=== PATIENT | male | born 1970 | race African-American/Black ===

== ENCOUNTER → 2017-02-24 | Outpatient (CLI) | payer OTHER ==
[2017-02-24 09:33] LABS: ABSOLUTE EOSINOPHILS # (AUTO) 0.1 10^3/uL (0.0-0.6); ABSOLUTE MONOCYTES (AUTO) 0.8 10^3/uL (0.1-1.4); ABSOLUTE NEUT (AUTO) 2.7 10^3/uL (1.7-8.2); BASOPHILS % (AUTO) 0.7 % (0-2); EOSINOPHILS % (AUTO) 2.5 % (0-6); HEMATOCRIT 39.8 % (37.9-51.0); HEMOGLOBIN 13.5 g/dL (13.5-17.0); HGB HCT DIFFERENCE 0.7; LYMPHOCYTES % (AUTO) 35.9 % (13-45); MEAN CORPUSCULAR HEMOGLOBIN 29.3 pg (27.0-33.4); MEAN CORPUSCULAR HGB CONC 33.9 g/dL (32.0-36.0); MEAN CORPUSCULAR VOLUME 87 fl (80-97); MONOCYTES % (AUTO) 13.4 % (3-13); RED BLOOD COUNT 4.61 10^6/uL (4.35-5.55); RED CELL DISTRIBUTION WIDTH 13.7 % (11.5-14.0); SEGMENTED NEUTROPHILS % (AUTO) 47.5 % (42-78); WHITE BLOOD COUNT 5.7 10^3/uL (4.0-10.5)
[2017-02-24 10:03] LABS: ALANINE AMINOTRANSFERASE 38 U/L (21-72); ALBUMIN 4.2 g/dL (3.5-5.0); ALKALINE PHOSPHATASE 67 U/L (38-126); ANION GAP 12 (5-19); ASPARTATE AMINO TRANSFERASE 19 U/L (17-59); BILIRUBIN,DIRECT 0.2 mg/dL (0.0-0.4); BILIRUBIN,TOTAL 0.6 mg/dL (0.2-1.3); BLOOD UREA NITROGEN 15 mg/dL (7-20); CALCIUM 9.7 mg/dL (8.4-10.2); CARBON DIOXIDE 27 mmol/L (22-30); CHLORIDE 103 mmol/L (98-107); CHOLESTEROL 183.76 mg/dL (0-200); CREATININE RESULT 0.71 mg/dL (0.52-1.25); Direct HDL 41 mg/dL (>40); GLUCOSE 159 mg/dL (75-110); POTASSIUM 4.7 mmol/L (3.6-5.0); SODIUM 141.5 mmol/L (137-145); TOTAL PROTEIN 6.8 g/dL (6.3-8.2); TRIGLYCERIDES 60 mg/dL (<150)
[2017-02-24 10:14] LABS: DIRECT LDL 117 mg/dL (<100)
== END ==
LOC: CCC 08:39
DX: I10 Essential (primary) hypertension (principal); E11.9 Type 2 diabetes mellitus without complications
CPT/HCPCS: 36415; 80053; 80061; 83036; 84443; 85025

== ENCOUNTER 2018-06-03 05:57 | Emergency (ER) | payer SELFPAY ==
[2018-06-03] MEDS ORDERED: CYCLOBENZAPRINE HCL 10 MG TABLET PO ONE (07:26)
[2018-06-03] MEDS ORDERED: OXYCODONE-ACETAMINOPHEN 5-325 MG TABLET PO ONE (07:26)
[2018-06-03] MEDS ORDERED: LIDOCAINE 5% (700 MG) TRANSDERMAL ADH..PATCH TP ONE (07:26)
[2018-06-03 08:14] LABS: APPEARANCE,URINE CLEAR; BILIRUBIN,URINE NEGATIVE (NEGATIVE); COLOR,URINE STRAW; GLUCOSE, URINE >=500 mg/dL (NEGATIVE); KETONES,URINE NEGATIVE (NEGATIVE); LEUKOCYTE ESTERASE,URINE NEGATIVE (NEGATIVE); NITRITE,URINE NEGATIVE (NEGATIVE); PROTEIN,URINE NEGATIVE (NEGATIVE); UROBILINOGEN,URINE NEGATIVE mg/dL (<2.0)
--- NOTE | 2018-06-03 08:32 | ER Document Report ---
HPI - HPI Patient complains to provider of: Low back pain Onset: Other - 2 days Onset/Duration: Persistent Quality of pain: Achy Pain Level: 5 Context: Patient presents complaining of low back pain for the past 2 days. Patient states that pain worsened yesterday after he mowed his yard. Patient denies any urinary symptoms fever, abdominal pain. Patient denies any radiculopathy or paresthesia. Patient denies any history of IV drug use. Patient does state he has had low back pain in this location in the past. Patient states this does feel similar to previous episodes of his back pain. Associated Symptoms: Other - Low back pain. denies: Fever Exacerbated by: Movement Relieved by: Denies Similar symptoms previously: No Recently seen / treated by doctor: No - ROS ROS below otherwise negative: Yes Systems Reviewed and Negative: Yes All other systems reviewed and negative - CONSTITUTIONAL Constitutional: DENIES: Fever, Chills - NEURO Neurology: DENIES: Weakness - GASTROINTESTINAL Gastrointestinal: DENIES: Abdominal Pain, Nausea - MUSCULOSKELETAL Musculoskeletal: REPORTS: Back Pain. DENIES: Extremity pain - DERM Skin Color: Normal Skin Problems: None Past Medical History - General Information source: Patient - Social History Smoking Status: Current Every Day Smoker Chew tobacco use (# tins/day): No Smoking Education Provided: Yes Frequency of alcohol use: None Drug Abuse: None Occupation: [employer] Lives with: Spouse/Significant other Family History: Reviewed & Not Pertinent Patient has suicidal ideation: No Patient has homicidal ideation: No - Past Medical History Cardiac Medical History: Reports: Hx Hypertension Pulmonary Medical History: Denies: Hx Tuberculosis Endocrine Medical History: Reports: Hx Diabetes Mellitus Type 2 Renal/ Medical History: Denies: Hx Peritoneal Dialysis Musculoskeletal Medical History: Reports Other - Low back pain Past Surgical History: Reports: Hx Orthopedic Surgery - Hip. Denies: Hx Pacemaker - Immunizations Hx Diphtheria, Pertussis, Tetanus Vaccination: Yes - 2009 Vertical Provider Document - CONSTITUTIONAL Agree With Documented VS: Yes Exam Limitations: No Limitations General Appearance: WD/WN, No Apparent Distress Notes: PHYSICAL EXAMINATION: GENERAL: Well-appearing, well-nourished and in no acute distress. HEAD: Atraumatic, normocephalic. EYES: sclera clear, anicteric, conjunctiva are normal. ENT: nares patent, Moist mucous membranes. NECK: Normal range of motion, supple no lymphadenopathy LUNGS: respirations unlabored HEART: Regular rate and rhythm without murmurs EXTREMITIES: Normal range of motion, no pitting or edema. No cyanosis. Gait normal, pt ambulates without difficulty BACK: Right lower lumbar paraspinal tenderness, no midline tenderness, no deformities or step-offs. Right CVA tenderness. NEUROLOGICAL: Cranial nerves grossly intact. Normal speech, normal gait. No saddle anesthesia. No foot drop PSYCH: Normal mood, normal affect. SKIN: Warm, Dry, normal turgor, no rashes or lesions noted. - INFECTION CONTROL TRAVEL OUTSIDE OF THE [place] IN LAST 30 DAYS: No Course - Re-evaluation Re-evalutation: 06/03/18 08:29 Patient feeling better after pain medication. Patient denies any urinary symptoms abdominal pain, concern about STD, or any history of kidney stones. Patient states the pain is similar to whenever he has tweaked his back in the past. Good return precautions given. The patient presents with low back pain without signs of spinal cord compression, cauda equina syndrome, infection, aneurysm, or other serious etiology. The patient is neurologically intact. Given the extremely risk of these diagnoses further testing and evaluation for these possibilities does not appear to be indicated at this time. Patient has been instructed to return if the symptoms worsen or change in any way. - Vital Signs Vital signs: Temp Pulse Resp BP Pulse Ox 97.8 F 100 19 147/105 H 97 06/03/18 05:58 06/03/18 05:58 06/03/18 05:58 06/03/18 05:58 06/03/18 05:58 - Laboratory Laboratory results interpreted by me: 06/03/18 07:48 Urine Glucose (UA) >=500 H Urine Blood SMALL H 06/03/18 08:30 Labs- Entire Visit 06/03/18 07:48 Urine Color STRAW Urine Appearance CLEAR Urine pH 5.0 Ur Specific [place] 1.030 Urine Protein NEGATIVE Urine Glucose (UA) >=500 H Urine Ketones NEGATIVE Urine Blood SMALL H Urine Nitrite NEGATIVE Urine Bilirubin NEGATIVE Urine Urobilinogen NEGATIVE Ur Leukocyte Esterase NEGATIVE Urine WBC (Auto) 1 Urine RBC (Auto) 1 Urine Mucus (Auto) RARE Urine Ascorbic Acid NEGATIVE Discharge - Discharge Clinical Impression: Low back pain Qualifiers: Chronicity: unspecified Back pain laterality: right Sciatica presence: without sciatica Qualified Code(s): M54.5 - Low back pain Condition: Stable Disposition: HOME, SELF-CARE Instructions: Ice Packs ([facility]), Low Back Pain ([facility]), Oral Narcotic Medication ( [facility]), Warm Packs ([facility]) Additional Instructions: Return immediately for any new or worsening symptoms Followup with your primary care provider, call tomorrow to make a followup appointment Prescriptions: Cyclobenzaprine HCl [Flexeril 10 Mg Tablet] 10 mg PO TID #15 tablet Oxycodone HCl/Acetaminophen [Percocet 5-325 mg Tablet] 1 tab PO ASDIR PRN #15 tablet PRN Reason: Forms: Smoking Cessation Education, Return to Work Referrals: [facility] [Provider Group] - Follow up as needed
[2018-06-03 08:58] VITALS: BP 126/90
== END 2018-06-03 08:57 | disposition home or self-care (01) ==
LOC: ER 05:57
DX: M54.5 Low back pain (principal); X50.9XXA Other and unspecified overexertion or strenuous movements or postures, initial encounter; F17.200 Nicotine dependence, unspecified, uncomplicated; I10 Essential (primary) hypertension; E11.9 Type 2 diabetes mellitus without complications
CPT/HCPCS: 81001; 99283

== ENCOUNTER 2019-01-30 12:25 | Observation (INO) | payer SELFPAY ==
--- NOTE | 2019-01-30 13:07 | EKG REPORT ---
SEVERITY:- ABNORMAL ECG - SINUS RHYTHM PROBABLE LVH WITH SECONDARY REPOL ABNRM : Confirmed by: Josse Barrera MD 30-Jan-2019 13:07:07
[2019-01-30] MEDS ORDERED: ASPIRIN 81 MG TABLET, CHEWABLE PO ONE (13:56)
--- NOTE | 2019-01-30 13:58 | ER Document Report ---
ED Medical Screen (RME) - General Chief Complaint: Chest Pain Stated Complaint: CHEST PAIN TRAVEL OUTSIDE OF THE [place] IN LAST 30 DAYS: No - HPI Notes: 01/30/19 13:57 Patient complaining of chest pain and generalized body weakness. On exam patient is pale. He denies abdominal pain, nausea or vomiting. - Related Data Allergies/Adverse Reactions: No Known Allergies Allergy (Verified 01/30/19 12:26) Past Medical History - Social History Chew tobacco use (# tins/day): No Frequency of alcohol use: Occasional Drug Abuse: None - Past Medical History Cardiac Medical History: Reports: Hx Hypertension Pulmonary Medical History: Denies: Hx Tuberculosis Endocrine Medical History: Reports: Hx Diabetes Mellitus Type 2 Renal/ Medical History: Denies: Hx Peritoneal Dialysis Past Surgical History: Reports: Hx Orthopedic Surgery - Hip. Denies: Hx Pacemaker - Immunizations Hx Diphtheria, Pertussis, Tetanus Vaccination: Yes - 2009 Physical Exam - Vital signs Vitals: Temp Pulse Resp BP Pulse Ox 97.8 F 91 16 125/96 H 96 01/30/19 12:37 01/30/19 12:37 01/30/19 12:37 01/30/19 12:37 01/30/19 12:37 Course - Vital Signs Vital signs: Temp Pulse Resp BP Pulse Ox 97.8 F 91 16 125/96 H 96 01/30/19 12:37 01/30/19 12:37 01/30/19 12:37 01/30/19 12:37 01/30/19 12:37
[2019-01-30 14:35] LABS: PROTHROMBIN TIME 12.6 SEC (11.4-15.4)
[2019-01-30 14:38] LABS: ABSOLUTE EOSINOPHILS # (AUTO) 0.1 10^3/uL (0.0-0.6); EOSINOPHILS % (AUTO) 1.7 % (0-6); HEMOGLOBIN 15.6 g/dL (13.5-17.0); RED CELL DISTRIBUTION WIDTH 13.4 % (11.5-14.0); TOTAL CELLS COUNTED % (AUTO) 100 %
[2019-01-30 14:39] LABS: APPEARANCE,URINE CLEAR; BILIRUBIN,URINE NEGATIVE (NEGATIVE); COLOR,URINE YELLOW; GLUCOSE, URINE >=500 mg/dL (NEGATIVE); KETONES,URINE NEGATIVE (NEGATIVE); LEUKOCYTE ESTERASE,URINE NEGATIVE (NEGATIVE); NITRITE,URINE NEGATIVE (NEGATIVE); PROTEIN,URINE NEGATIVE (NEGATIVE); URINE SPECIFIC GRAVITY 1.031; UROBILINOGEN,URINE NEGATIVE mg/dL (<2.0)
[2019-01-30 14:48] LABS: ABSOLUTE BASOPHILS # (AUTO) 0.1 10^3/uL (0.0-0.2); ABSOLUTE LYMPHOCYTES (AUTO) 1.9 10^3/uL (0.5-4.7); ABSOLUTE MONOCYTES (AUTO) 0.8 10^3/uL (0.1-1.4); ABSOLUTE NEUT (AUTO) 3.4 10^3/uL (1.7-8.2); BASOPHILS % (AUTO) 1.1 % (0-2); HEMATOCRIT 45.4 % (37.9-51.0); LYMPHOCYTES % (AUTO) 30.3 % (13-45); MEAN CORPUSCULAR HEMOGLOBIN 31.4 pg (27.0-33.4); MEAN CORPUSCULAR HGB CONC 34.4 g/dL (32.0-36.0); MEAN CORPUSCULAR VOLUME 91 fl (80-97); MONOCYTES % (AUTO) 12.9 % (3-13); RED BLOOD COUNT 4.97 10^6/uL (4.35-5.55); WHITE BLOOD COUNT 6.4 10^3/uL (4.0-10.5)
[2019-01-30 14:53] LABS: ALANINE AMINOTRANSFERASE 31 U/L (21-72); ALBUMIN 5.1 g/dL (3.5-5.0); ALKALINE PHOSPHATASE 82 U/L (38-126); ANION GAP 11 (5-19); ASPARTATE AMINO TRANSFERASE 22 U/L (17-59); BILIRUBIN,DIRECT 0.3 mg/dL (0.0-0.4); BILIRUBIN,TOTAL 0.7 mg/dL (0.2-1.3); BLOOD UREA NITROGEN 19 mg/dL (7-20); CALCIUM 11.3 mg/dL (8.4-10.2); CARBON DIOXIDE 27 mmol/L (22-30); CHLORIDE 97 mmol/L (98-107); CREATINE KINASE 45 U/L (55-170); GLUCOSE 301 mg/dL (75-110); POTASSIUM 4.8 mmol/L (3.6-5.0); SODIUM 135.3 mmol/L (137-145)
[2019-01-30 15:05] LABS: PLATELET COUNT 106 10^3/uL (150-450)
--- NOTE | 2019-01-30 15:13 | RADIOLOGY REPORT (SQ) ---
EXAM DESCRIPTION: CHEST SINGLE VIEW COMPLETED DATE/TIME: 01/30/2019 2:55 pm REASON FOR STUDY: chest pain COMPARISON: None. EXAM PARAMETERS: NUMBER OF VIEWS: One view. TECHNIQUE: Single frontal radiographic view of the chest acquired. RADIATION DOSE: NA LIMITATIONS: None. FINDINGS: LUNGS AND PLEURA: No opacities, masses or pneumothorax. No pleural effusion. MEDIASTINUM AND HILAR STRUCTURES: No masses. Contour normal. HEART AND VASCULAR STRUCTURES: Heart normal in size. Normal vasculature. BONES: No acute findings. HARDWARE: None in the chest. OTHER: No other significant finding. IMPRESSION: NO ACUTE RADIOGRAPHIC FINDING IN THE CHEST. TECHNICAL DOCUMENTATION: JOB ID: [id number] [employer]- All Rights Reserved Reading location - IP/workstation name: [email or web address]
[2019-01-30 15:17] LABS: TROPONIN I < 0.012 ng/mL
--- NOTE | 2019-01-30 18:07 | ER Document Report ---
ED Cardiac - General Chief Complaint: Chest Pain Stated Complaint: CHEST PAIN Time Seen by Provider: 01/30/19 17:10 Notes: 48-year-old male to the emergency department chief complaint of chest pain. Patient states that he has had intermittent chest pain on the left sometimes radiating down left arm. Comes and goes. Has been present on and off for several days. Feels like he has shortness of breath. When he tries to exert himself he feels like his heart is racing he feels very short of breath. Today it was getting worse. When sitting still his heart rate is fine whenever he tries to move his heart rate goes up and he feels short of breath. TRAVEL OUTSIDE OF THE [place] IN LAST 30 DAYS: No - HPI Patient complains to provider of: Chest pain, Chest tightness, Palpitations, Shortness of breath Was the onset of pain: Gradual Is the pain a: New problem Quality of pain: Intermittent, Mild - Related Data Allergies/Adverse Reactions: No Known Allergies Allergy (Verified 01/30/19 12:26) Past Medical History - General Information source: Patient - Social History Smoking Status: Current Every Day Smoker Chew tobacco use (# tins/day): No Frequency of alcohol use: Occasional Drug Abuse: None Lives with: Family Family History: CAD, DM, Hyperlipidemia, Hypertension Patient has suicidal ideation: No Patient has homicidal ideation: No - Past Medical History Cardiac Medical History: Reports: Hx Hypertension Pulmonary Medical History: Denies: Hx Tuberculosis Endocrine Medical History: Reports: Hx Diabetes Mellitus Type 2 Renal/ Medical History: Denies: Hx Peritoneal Dialysis Past Surgical History: Reports: Hx Orthopedic Surgery - Hip. Denies: Hx Pacemaker - Immunizations Hx Diphtheria, Pertussis, Tetanus Vaccination: Yes - 2009 Review of Systems - Review of Systems Notes: Constitutional: denies: Chills, Diaphoresis, Fever, Malaise, Weakness EENT: denies: Eye discharge, Blurred vision, Tearing, Double vision, Nose congestion, Nose discharge, Throat swelling, Mouth pain Cardiovascular: denies: Palpitations, Heart racing, Orthopnea, +Dyspnea, +Chest pain Respiratory: denies: Cough, Hurts to breathe, Wheezing, +Shortness of breath Gastrointestinal: denies: Abdominal pain, Diarrhea, Nausea, Vomiting, Black stools, bright red blood in stool Genitourinary: denies: Burning, Dysuria, Discharge, Frequency, Flank pain, Hematuria Musculoskeletal: denies: Joint pain, Joint swelling, Muscle pain, Muscle stif fness, back pain Hematologic/Lymphatic: denies: Anemia, Easy bleeding, Easy bruising, Blood clots Neurological/Psychological: denies: Confusion, Dementia, Depression, Loss of consciousness Skin: No lesions, no masses, no skin breakdown, no abscesses Physical Exam - Vital signs Vitals: Temp Pulse Resp BP Pulse Ox 97.8 F 91 16 125/96 H 96 01/30/19 12:37 01/30/19 12:37 01/30/19 12:37 01/30/19 12:37 01/30/19 12:37 Interpretation: Normal - General General appearance: Appears well, Alert - HEENT Head: Normocephalic, Atraumatic Eyes: Normal Pupils: PERRL - Respiratory Respiratory status: No respiratory distress Chest status: Nontender Breath sounds: Normal Chest palpation: Normal - Cardiovascular Rhythm: Regular Heart sounds: Normal auscultation Murmur: No - Abdominal Inspection: Normal Distension: No distension Bowel sounds: Normal Tenderness: Nontender Organomegaly: No organomegaly - Back Back: Normal, Nontender - Extremities General upper extremity: Normal inspection, Nontender, Normal color, Normal ROM, Normal temperature General lower extremity: Normal inspection, Nontender, Normal color, Normal ROM, Normal temperature, Normal weight bearing. No: Ansley's sign - Neurological Neuro grossly intact: Yes Cognition: Normal Orientation: AAOx4 Wiley Coma Scale Eye Opening: Spontaneous Wiley Coma Scale Verbal: Oriented Sergey Coma Scale Motor: Obeys Commands Wiley Coma Scale Total: 15 Speech: Normal Motor strength normal: LUE, RUE, LLE, RLE Sensory: Normal - Psychological Associated symptoms: Normal affect, Normal mood - Skin Skin Temperature: Warm Skin Moisture: Dry Skin Color: Normal Course - Re-evaluation Re-evalutation: 01/30/19 20:33 Laboratory 01/30/19 01/30/19 01/30/19 14:13 14:13 14:13 WBC 6.4 RBC 4.97 Hgb 15.6 Hct 45.4 MCV 91 MCH 31.4 MCHC 34.4 RDW 13.4 Plt Count 106 L Seg Neutrophils % 54.0 Lymphocytes % 30.3 Monocytes % 12.9 Eosinophils % 1.7 Basophils % 1.1 Absolute Neutrophils 3.4 Absolute Lymphocytes 1.9 Absolute Monocytes 0.8 Absolute Eosinophils 0.1 Absolute Basophils 0.1 PT 12.6 INR 0.90 APTT 36.0 H D-Dimer Sodium 135.3 L Potassium 4.8 Chloride 97 L Carbon Dioxide 27 Anion Gap 11 BUN 19 Creatinine 0.83 Est GFR ( Amer) > 60 Est GFR (Non-Af Amer) > 60 Glucose 301 H Calcium 11.3 H Total Bilirubin 0.7 Direct Bilirubin 0.3 Neonat Total Bilirubin Not Reportable Neonat Direct Bilirubin Not Reportable Neonat Indirect Bili Not Reportable AST 22 ALT 31 Alkaline Phosphatase 82 Creatine Kinase 45 L CK-MB (CK-2) Troponin I Total Protein 8.0 Albumin 5.1 H Urine Color Urine Appearance Urine pH Ur Specific [place] Urine Protein Urine Glucose (UA) Urine Ketones Urine Blood Urine Nitrite Urine Bilirubin Urine Urobilinogen Ur Leukocyte Esterase Urine WBC (Auto) Urine Mucus (Auto) Urine Ascorbic Acid 01/30/19 01/30/19 01/30/19 14:13 14:13 14:13 WBC RBC Hgb Hct MCV MCH MCHC RDW Plt Count Seg Neutrophils % Lymphocytes % Monocytes % Eosinophils % Basophils % Absolute Neutrophils Absolute Lymphocytes Absolute Monocytes Absolute Eosinophils Absolute Basophils PT INR APTT D-Dimer 0.81 H Sodium Potassium Chloride Carbon Dioxide Anion Gap BUN Creatinine Est GFR ( Amer) Est GFR (Non-Af Amer) Glucose Calcium Total Bilirubin Direct Bilirubin Neonat Total Bilirubin Neonat Direct Bilirubin Neonat Indirect Bili AST ALT Alkaline Phosphatase Creatine Kinase CK-MB (CK-2) 0.30 Troponin I < 0.012 Total Protein Albumin Urine Color YELLOW Urine Appearance CLEAR Urine pH 5.0 Ur Specific [place] 1.031 Urine Protein NEGATIVE Urine Glucose (UA) >=500 H Urine Ketones NEGATIVE Urine Blood SMALL H Urine Nitrite NEGATIVE Urine Bilirubin NEGATIVE Urine Urobilinogen NEGATIVE Ur Leukocyte Esterase NEGATIVE Urine WBC (Auto) 1 Urine Mucus (Auto) RARE Urine Ascorbic Acid NEGATIVE 01/30/19 19:40 WBC RBC Hgb Hct MCV MCH MCHC RDW Plt Count Seg Neutrophils % Lymphocytes % Monocytes % Eosinophils % Basophils % Absolute Neutrophils Absolute Lymphocytes Absolute Monocytes Absolute Eosinophils Absolute Basophils PT INR APTT D-Dimer Sodium Potassium Chloride Carbon Dioxide Anion Gap BUN Creatinine Est GFR ( Amer) Est GFR (Non-Af Amer) Glucose Calcium Total Bilirubin Direct Bilirubin Neonat Total Bilirubin Neonat Direct Bilirubin Neonat Indirect Bili AST ALT Alkaline Phosphatase Creatine Kinase CK-MB (CK-2) Troponin I 0.016 Total Protein Albumin Urine Color Urine Appearance Urine pH Ur Specific [place] Urine Protein Urine Glucose (UA) Urine Ketones Urine Blood Urine Nitrite Urine Bilirubin Urine Urobilinogen Ur Leukocyte Esterase Urine WBC (Auto) Urine Mucus (Auto) Urine Ascorbic Acid 01/30/19 22:20 Chest X-Ray 01/30/19 13:56 IMPRESSION: NO ACUTE RADIOGRAPHIC FINDING IN THE CHEST. Chest/Abdomen CTA 01/30/19 19:36 IMPRESSION: No acute pulmonary embolism. No acute pathology. Patient had a CTA as well as chest x-ray and cardiac labs x2. All this is unremarkable. CTA was performed based on his symptoms of shortness of breath and heart racing with a family history of pulmonary embolisms. At this time patient has significant risk factors including family history, hypertension, male, and diabetes. Patient has never had a stress test. At this time patient has stable for admission and workup. Will page hospitalist for admission at this time. Patient's heart score is 4 - Vital Signs Vital signs: Temp Pulse Resp BP Pulse Ox 97.8 F 91 12 146/101 H 100 01/30/19 12:37 01/30/19 12:37 01/30/19 21:08 01/30/19 20:01 01/30/19 21:08 - Laboratory Result Diagrams: 01/30/19 14:13 01/30/19 14:13 Laboratory results interpreted by me: 01/30/19 01/30/19 01/30/19 14:13 14:13 14:13 Plt Count 106 L APTT 36.0 H D-Dimer Sodium 135.3 L Chloride 97 L Glucose 301 H Calcium 11.3 H Creatine Kinase 45 L Albumin 5.1 H Urine Glucose (UA) Urine Blood 01/30/19 01/30/19 14:13 14:13 Plt Count APTT D-Dimer 0.81 H Sodium Chloride Glucose Calcium Creatine Kinase Albumin Urine Glucose (UA) >=500 H Urine Blood SMALL H - EKG Interpretation by Me EKG shows normal: Sinus rhythm, Mcleod, Intervals, QRS Complexes, ST-T Waves Voltage: Consistant with LVH Discharge - Discharge Clinical Impression: Chest pain at rest Condition: Good Disposition: ADMITTED OBSERVATION Admitting Provider: Hospitalist - [facility] Admitted: Telemetry
--- NOTE | 2019-01-30 21:31 | RADIOLOGY REPORT (SQ) ---
EXAM DESCRIPTION: CT CHEST ANGIOGRAPHY WITHOUT THEN WITH IV CONTRAST, three-dimensional reconstructions COMPLETED DATE/TME: 01/30/2019 19:36 CLINICAL HISTORY: 48 years, Male, chest pain , sob This exam was performed according to our departmental dose-optimization program which includes automated exposure control, adjustment of the mA and/or kVp according to patient size and/or use of iterative reconstruction technique where applicable. FINDINGS: Thyroid is within normal limits. Pulmonary arteries are well opacified with no significant filling defects in the pulmonary arterial tree to suggest acute pulmonary embolism. Aorta is within normal limits with no aneurysm or dissection. No significant mediastinal, hilar or axillary lymphadenopathy. No pleural or pericardial effusions. The visualized upper abdominal organs are within normal limits. Evaluation of the lung parenchyma demonstrates trachea and major airways to be patent. No suspicious lung nodules or masses. No consolidations to suggest pneumonia. IMPRESSION: No acute pulmonary embolism. No acute pathology.
[2019-01-30] MEDS ORDERED: ACETAMINOPHEN 325 MG TABLET PO PRN (22:29)
[2019-01-30] MEDS ORDERED: DEXTROSE 50%-WATER 25 GM/50 ML DISP.SYRIN IV PRN ×2 (22:29)
[2019-01-30] MEDS ORDERED: GLUCAGON,HUMAN RECOMB 1 MG INJ IM PRN (22:29)
[2019-01-30] MEDS ORDERED: NITROGLYCERIN 0.4 MG/TAB 25 TAB/BOTTLE SL PRN (22:29)
[2019-01-30] MEDS ORDERED: DEXTROSE 40% GEL 15 GM TUBE PO PRN ×2 (22:29)
[2019-01-30] MEDS ORDERED: MAG HYDROX/AL HYDROX/SIMETH SUSP 30 ML UDCUP PO ONE (23:30)
[2019-01-30] MEDS ORDERED: ATORVASTATIN CALCIUM 80 MG TABLET PO ONE (23:30)
[2019-01-30] MEDS ORDERED: LACTULOSE SYRUP 20 GM/30 ML UDCUP PO ONE (23:30)
[2019-01-31] MEDS ORDERED: NICOTINE 7 MG/24 HR PATCH.TD24 TD ONE (02:00)
--- NOTE | 2019-01-31 02:44 | PDOC H&P ---
History of Present Illness Admission Date/PCP: 01/30/19 23:48 Patient complains of: Left-sided chest pain History of Present Illness: TOBY CIFUENTES JR is a 48 year old male with a past medical history of diabetes, hypertension, dyslipidemia and tobacco dependence. Patient presents with 48 hours of intermittent chest pain which is left-sided 3 out of 5 intensity l asting 5-15 minutes. Dull in nature associated with palpitations and shortness of breath. He denies nausea vomiting or previous episode he is unable to identify alleviating or exacerbating factors. He denies previous stress test. He admits medication lifestyle indiscretion. He is currently pain-free and referred to the hospitalist for admission. His last A1c was 8 approximately 12 months ago Past Medical History Cardiac Medical History: Reports: Hypertension Pulmonary Medical History: Denies: Tuberculosis Endocrine Medical History: Reports: Diabetes Mellitus Type 2 Psychiatric Medical History: Reports: Tobacco Dependency Past Surgical History Past Surgical History: Reports: Orthopedic Surgery - Hip Denies: Pacemaker Social History Information Source: Patient Lives with: Family Smoking Status: Current Every Day Smoker Frequency of Alcohol Use: None Hx Recreational Drug Use: No Drugs: None Hx Prescription Drug Abuse: No - Advance Directive Resuscitation Status: Full Code Family History Family History: CAD, DM, Hyperlipidemia, Hypertension Parental Family History Reviewed: Yes Children Family History Reviewed: Yes Sibling(s) Family History Reviewed.: Yes Medication/Allergy Home Medications: Lisinopril/Hydrochlorothiazide [Lisinopril-Hctz 20-12.5 mg Tab] 1 each PO DAILY 01/15/15 Metformin HCl [Glucophage] 500 mg PO DAILY 01/15/15 Lisinopril/Hydrochlorothiazide [Lisinopril-Hctz 20-12.5 mg Tab] 1 each PO DAILY #30 tablet 09/12/15 Metformin HCl [Glucophage] 500 mg PO DAILY #30 tablet 09/12/15 Metformin HCl [Glucophage 500 mg Tablet] 500 mg PO TID #90 tablet 09/18/15 Glipizide [Glipizide ER] 5 mg PO DAILY #30 tab.er.24 11/03/16 Lisinopril/Hydrochlorothiazide [Lisinopril-Hctz 20-12.5 mg Tab] 1 each PO DAILY #30 tablet 11/03/16 Metformin HCl 1,000 mg PO DAILY #60 tablet 12/15/16 Cyclobenzaprine HCl [Flexeril 10 Mg Tablet] 10 mg PO TID #15 tablet 06/03/18 Oxycodone HCl/Acetaminophen [Percocet 5-325 mg Tablet] 1 tab PO ASDIR PRN #15 tablet 06/03/18 Allergies/Adverse Reactions: No Known Allergies Allergy (Verified 01/30/19 12:26) Review of Systems Constitutional: ABSENT: chills, fever(s), headache(s), weight gain, weight loss Eyes: ABSENT: visual disturbances Ears: ABSENT: hearing changes Cardiovascular: ABSENT: chest pain, dyspnea on exertion, edema, orthropnea, palpitations Respiratory: ABSENT: cough, hemoptysis Gastrointestinal: ABSENT: abdominal pain, constipation, diarrhea, hematemesis, hematochezia, nausea, vomiting Genitourinary: ABSENT: dysuria, hematuria Musculoskeletal: ABSENT: joint swelling Integumentary: ABSENT: rash, wounds Neurological: ABSENT: abnormal gait, abnormal speech, confusion, dizziness, focal weakness, syncope Psychiatric: ABSENT: anxiety, depression, homidical ideation, suicidal ideation Endocrine: ABSENT: cold intolerance, heat intolerance, polydipsia, polyuria Hematologic/Lymphatic: ABSENT: easy bleeding, easy bruising Physical Exam Vital Signs: Temp Pulse Resp BP Pulse Ox 97.7 F 73 17 139/95 H 98 01/31/19 01:43 01/31/19 01:43 01/31/19 01:43 01/31/19 01:43 01/31/19 01:43 Intake & Output 01/29/19 01/30/19 01/31/19 11:59 11:59 11:59 Weight 82.3 kg General appearance: PRESENT: no acute distress, well-developed, well-nourished Head exam: PRESENT: atraumatic, normocephalic Eye exam: PRESENT: conjunctiva pink, EOMI, PERRLA. ABSENT: scleral icterus Ear exam: PRESENT: normal external ear exam Mouth exam: PRESENT: moist, tongue midline Neck exam: ABSENT: carotid bruit, JVD, lymphadenopathy, thyromegaly Respiratory exam: PRESENT: clear to auscultation antonella. ABSENT: rales, rhonchi, wheezes Cardiovascular exam: PRESENT: RRR. ABSENT: diastolic murmur, rubs, systolic murmur Pulses: PRESENT: normal dorsalis pedis pul Vascular exam: PRESENT: normal capillary refill GI/Abdominal exam: PRESENT: normal bowel sounds, soft. ABSENT: distended, guarding, mass, organolmegaly, rebound, tenderness Rectal exam: PRESENT: deferred Extremities exam: PRESENT: full ROM. ABSENT: calf tenderness, clubbing, pedal edema Neurological exam: PRESENT: alert, awake, oriented to person, oriented to place, oriented to time, oriented to situation, CN II-XII grossly intact. ABSENT: motor sensory deficit Psychiatric exam: PRESENT: appropriate affect, normal mood. ABSENT: homicidal ideation, suicidal ideation Skin exam: PRESENT: dry, intact, warm. ABSENT: cyanosis, rash Results Laboratory Results: 01/30/19 14:13 01/30/19 14:13 01/30/19 01/30/19 01/30/19 14:13 14: 14:13 WBC 6.4 RBC 4.97 Hgb 15.6 Hct 45.4 MCV 91 MCH 31.4 MCHC 34.4 RDW 13.4 Plt Count 106 L Seg Neutrophils % 54.0 Lymphocytes % 30.3 Monocytes % 12.9 Eosinophils % 1.7 Basophils % 1.1 Absolute Neutrophils 3.4 Absolute Lymphocytes 1.9 Absolute Monocytes 0.8 Absolute Eosinophils 0.1 Absolute Basophils 0.1 Sodium 135.3 L Potassium 4.8 Chloride 97 L Carbon Dioxide 27 Anion Gap 11 BUN 19 Creatinine 0.83 Est GFR ( Amer) > 60 Est GFR (Non-Af Amer) > 60 Glucose 301 H Calcium 11.3 H Total Bilirubin 0.7 AST 22 ALT 31 Alkaline Phosphatase 82 Total Protein 8.0 Albumin 5.1 H Urine Color YELLOW Urine Appearance CLEAR Urine pH 5.0 Ur Specific [place] 1.031 Urine Protein NEGATIVE Urine Glucose (UA) >=500 H Urine Ketones NEGATIVE Urine Blood SMALL H Urine Nitrite NEGATIVE Ur Leukocyte Esterase NEGATIVE Urine WBC (Auto) 1 01/30/19 01/30/19 01/30/19 14:13 14:13 19:40 Creatine Kinase 45 L CK-MB (CK-2) 0.30 Troponin I < 0.012 0.016 01/30/19 01/30/19 01/31/19 19:40 19:40 01:12 Creatine Kinase 38 L CK-MB (CK-2) 0.25 Troponin I 0.017 Impressions: Chest X-Ray 01/30/19 13:56 IMPRESSION: NO ACUTE RADIOGRAPHIC FINDING IN THE CHEST. Chest/Abdomen CTA 01/30/19 19:36 IMPRESSION: No acute pulmonary embolism. No acute pathology. Assessment & Plan - Diagnosis (1) Atypical chest pain Is this a current diagnosis for this admission?: Yes Plan: Atypical chest pain though the patient's pain is atypical there are multiple risk factors for coronary artery disease and subsequently will observe and evaluation of acute coronary syndrome versus coronary artery disease with anginal equivalents. Cardiac monitoring blood pressure Q6 hours ,TSH, lipid profile, serial cardiac enzymes and cardiac stress test (2) Diabetes Is this a current diagnosis for this admission?: Yes Plan: Outpatient regimen with holding metformin, Humalog sliding scale while n.p.o. Follow-up A1c (3) Hypertension Is this a current diagnosis for this admission?: Yes Plan: ELIAZAR inhibitor (4) Dyslipidemia Is this a current diagnosis for this admission?: Yes Plan: Empiric statin initiated, follow-up lipid profile (5) Tobacco dependency Is this a current diagnosis for this admission?: Yes Plan: Tobacco Dependence patient received tobacco cessation counseling and offered nicotine replacement options - Time Time Spent: 30 to 50 Minutes - Inpatient Certification Medical Necessity: Need Close Monitoring Due to Risk of Patient Decompensation
[2019-01-31] MEDS ORDERED: REGADENOSON INJ 0.4 MG/5 ML DISP.SYRIN IV ONE (07:17)
[2019-01-31] MEDS: INSULIN LISPRO 100 UNIT/ML 3 ML VIAL SUBCUT SCH ×2 (08:10→13:00)
[2019-01-31 09:36] LABS: CHOLESTEROL 239.58 mg/dL (0-200); TRIGLYCERIDES 133 mg/dL (<150)
[2019-01-31 09:48] LABS: DIRECT LDL 159 mg/dL (<100)
[2019-01-31] MEDS ORDERED: NICOTINE 7 MG/24 HR PATCH.TD24 TD SCH (10:00)
[2019-01-31] MEDS ORDERED: ASPIRIN 81 MG TABLET, ENT COATED PO SCH (10:00)
[2019-01-31] MEDS: CYCLOBENZAPRINE HCL 10 MG TABLET PO SCH ×2 (12:59→15:17)
[2019-01-31 14:12] VITALS: BP 127/88
[2019-01-31] MEDS ORDERED: ATORVASTATIN CALCIUM 80 MG TABLET PO SCH (22:00)
--- NOTE | 2019-02-01 00:49 | DRAGON STRESS TEST REPORT ---
Intravenous Lexiscan Cardiolite stress test using single photon emmision computerized tomography. Date of procedure: 01/31/2019. Ordering Provider: Dr. Wilfredo Decker. Patient's status: In Patient Indication: Chest pain. Coronary risk factors: Age, dyslipidemia, and tobacco abuse disorder. Resting EKG: Sinus Rhythm. Minor nonspecific ST-T changes diffuse. Stress EKG[ No changes of ischemia. Reason for termination: Protocol. Conclusions: Normal EKG and hemodynamic response to IV Lexiscan. Nuclear data: At rest the patient was given 12.33 millicuries of technetium 99m sestamibi injected intravenously. As per protocol rest non gated SPECT images were obtained. Subsequently the patient was given intravenous Lexiscan at a dose of 0.4 mg in 5 mL intravenously, followed by flush with normal saline. Subsequently the stress dose of 38.6 millicuries of technetium 99m sestamibi was injected intravenously. As per protocol stress gated images were obtained. Nuclear interpretation: Review of images showed that all segments of the myocardium had normal perfusion at rest, and normal perfusion post stress with IV Lexiscan. All segments of the myocardium had normal motion, thickening by gated study. The left ventricle cavity was dilated, and there was moderate global hypokinesis consistent with cardiomyopathy T. I D. ratio was normal at 0.97. There is no transient ischemic dilatation of the left ventricle. Computer read rest, and stress left ventricular ejection fraction were 39 %, and 38 %, respectively. Visually the stress and rest ejection fractions appear to be moderately reduced. Conclusion: 1. There is no scintigraphic evidence of Lexiscan induced myocardial ischemia. 2. There is no scintigraphic evidence of myocardial infarction/scar. 3. There is evidence of dilated cardiomyopathy with moderately reduced LV ejection fraction. Recommendations: 1. Aggressive treatment of cardiomyopathy. 2. Aggressive risk factor modification, and treating the underlying co- morbidities. 3. Check echo for LV ejection fraction correlation. Will be discussed with the nurse practitioner Ms. Bernie Guo, hospitalist taking care of the patient. MICAH
--- NOTE | 2019-02-01 17:01 | PDOC DISCHARGE SUMMARY ---
General - Admit/Disc Date/PCP Admission Date/Primary Care Provider: 01/30/19 23:48 Discharge Date: 01/31/19 - Discharge Diagnosis (1) Atypical chest pain Is this a current diagnosis for this admission?: Yes Summary: Troponins negative x5. CT of the chest was negative for PE. No other acute findings. Chest x-ray was benign. EKG demonstrated NSR with LVH; no ST segment changes. Cardiolite stress test was negative for evidence of induced myocardial ischemia or evidence of myocardial infection/scar. There was evidence of dilated cardiomyopathy with moderately reduced LVEF estimated to be 40%. The patient was admitted to the medical floor on continuous cardiac telemetry. The patient underwent the above mentioned cardiac evaluation. The patient stated that he had no further episodes of chest discomfort and only concern was fatigue. Received call from paper cone machine tender w/ report of negative stress test and clearance to be discharged to home. At time of discharge, the formal stress test report was not yet available. The patient was discharged to home with recommendations to continue daily aspirin and statin therapy. He was instructed to stop smoking and to increase his efforts to obtain glucose control. He was further advised to return to the emergency department as needed for concerning symptoms. He was discharged to home in stable condition, asymptomatic, and maintaining oxygen saturations on room air the afternoon of 01/31/19. 02/01/19; Cardiolite stress test report is reviewed and reveals that the patient is noted to have dilated cardiomyopathy with estimated LVEF of 40% with recommendations for follow up echocardiogram and management of cardiomyopathy. Unfortunately, he had been discharged several hours prior to report being completed. He is noted to already be on daily aspirin, atorvastatin, and ELIAZAR (lisinopril) therapy. I was able to reach Mr Cristina by phone to explain the stress test findings. He is advised of the importance of taking his medications as prescribed, eating a low sodium diet, weighing himself daily and calling his PCP for weight gain >2 lbs overnight, and to follow up with his PCP to arrange for an echocardiogram. Mr. Cristina advises that he has an appointment scheduled with the [facility] next week. (2) Diabetes Is this a current diagnosis for this admission?: Yes Summary: A1c 11.2% The patient is advised of the importance of following a consistent carb diet and taking his medications as prescribed. He states that he wishes to avoid insulin therapy at this time. He is instructed to continue his home dose metformin. He is also placed on glipizide 2.5 mg to take with lunch daily (patient states that he does not eat breakfast and that lunch is his most consistent meal the day). He is informed that his primary care provider will likely recommend more aggressive therapy. He is strongly encouraged to check his blood glucose before meals and at bedtime, keep a log, and present this to his PCP at his follow-up of visit. Instructed to follow-up with his primary care provider within 1 week. (3) Dyslipidemia Is this a current diagnosis for this admission?: Yes Summary: Lipid panel demonstrated HDL 50, LDL 159, triglycerides 133, total cholesterol 239. Patient was advised on dietary and lifestyle modifications. Continue home dose atorvastatin. (4) Hypertension Is this a current diagnosis for this admission?: Yes Summary: The patient was normotensive on his home medication regiment of L isinopril/hydrochlorothiazide. (5) Tobacco dependency Is this a current diagnosis for this admission?: Yes Summary: Smoking cessation was strongly encouraged; prescription for NicoDerm patches was provided. - Additional Information Resuscitation Status: Full Code Discharge Diet: Cardiac, Diabetic Discharge Activity: Activity As Tolerated, Balance Activity w/Rest Prescriptions: Atorvastatin Calcium [Lipitor 20 mg Tablet] 20 mg PO QHS #30 tablet Carvedilol [Coreg] 3.125 mg PO Q12 #60 tablet Glipizide [Glucotrol Xl] 2.5 mg PO ACBRKFST #30 tab.er.24 Lisinopril [Zestril] 5 mg PO DAILY #30 tablet Metformin HCl [Glucophage 500 mg Tablet] 500 mg PO BID #60 tablet Nicotine [Nicoderm 7 mg/24 Hr Transdermal Patch] 1 each TD DAILY #30 patch.td24 Home Medications: Acetaminophen [Tylenol 325 mg Tablet] 650 mg PO Q4HP PRN tablet 01/31/19 Aspirin [Ecotrin 81 mg EC Tablet] 81 mg PO DAILY tabec 01/31/19 Atorvastatin Calcium [Lipitor 20 mg Tablet] 20 mg PO QHS #30 tablet 01/31/19 Cyclobenzaprine HCl [Flexeril 10 mg Tablet] 5 mg PO TID tablet 01/31/19 Glipizide [Glucotrol Xl] 2.5 mg PO ACBRKFST #30 tab.er.24 01/31/19 Metformin HCl [Glucophage 500 mg Tablet] 500 mg PO BID #60 tablet 01/31/19 Nicotine [Nicoderm 7 mg/24 Hr Transdermal Patch] 1 each TD DAILY #30 patch.td24 01/31/19 Carvedilol [Coreg] 3.125 mg PO Q12 #60 tablet 02/01/19 Lisinopril [Zestril] 5 mg PO DAILY #30 tablet 02/01/19 History of Present Illness History of Present Illness: Per H&P by Dr. Decker: TOBY CRISTINA JR is a 48 year old male with a past medical history of diabetes, hypertension, dyslipidemia and tobacco dependence. Patient presents with 48 hours of intermittent chest pain which is left-sided 3 out of 5 intensity lasting 5-15 minutes. Dull in nature associated with palpitations and shortness of breath. He denies nausea vomiting or previous episode he is unable to identify alleviating or exacerbating factors. He denies previous stress test. He admits medication lifestyle indiscretion. He is currently pain-free and referred to the hospitalist for admission. His last A1c was 8 approximately 12 months ago Physical Exam Vital Signs: Temp Pulse Resp BP Pulse Ox 98.3 F 72 16 127/88 H 98 01/31/19 15:58 01/31/19 15:58 01/31/19 15:58 01/31/19 15:58 01/31/19 15:58 Intake & Output 01/31/19 02/01/19 02/02/19 06:59 06:59 06:59 Intake Total 0 857 Balance 0 857 Weight 82.3 kg General appearance: PRESENT: no acute distress, well-developed, well-nourished Head exam: PRESENT: atraumatic, normocephalic Eye exam: PRESENT: conjunctiva pink, EOMI, PERRLA. ABSENT: scleral icterus Ear exam: PRESENT: normal external ear exam Mouth exam: PRESENT: moist, tongue midline Neck exam: ABSENT: carotid bruit, JVD, lymphadenopathy, thyromegaly Respiratory exam: PRESENT: clear to auscultation antonella, symmetrical, unlabored. ABSENT: rales, rhonchi, wheezes Cardiovascular exam: PRESENT: RRR. ABSENT: diastolic murmur, rubs, systolic murmur Pulses: PRESENT: normal dorsalis pedis pul Vascular exam: PRESENT: normal capillary refill GI/Abdominal exam: PRESENT: normal bowel sounds, soft. ABSENT: distended, guarding, mass, organolmegaly, rebound, tenderness Rectal exam: PRESENT: deferred Extremities exam: PRESENT: full ROM. ABSENT: calf tenderness, clubbing, pedal edema Neurological exam: PRESENT: alert, awake, oriented to person, oriented to place, oriented to time, oriented to situation, CN II-XII grossly intact. ABSENT: motor sensory deficit Psychiatric exam: PRESENT: appropriate affect, normal mood. ABSENT: homicidal ideation, suicidal ideation Skin exam: PRESENT: dry, intact, warm. ABSENT: cyanosis, rash Results Laboratory Results: 01/30/19 14:13 01/30/19 14:13 01/30/19 01/30/19 01/30/19 14:13 14:13 19:40 Creatine Kinase 45 L CK-MB (CK-2) 0.30 Troponin I < 0.012 0.016 01/30/19 01/30/19 01/31/19 19:40 19:40 01:12 Creatine Kinase 38 L CK-MB (CK-2) 0.25 Troponin I 0.017 01/31/19 01/31/19 08:26 13:23 Creatine Kinase CK-MB (CK-2) Troponin I 0.016 < 0.012 Impressions: Chest X-Ray 01/30/19 13:56 IMPRESSION: NO ACUTE RADIOGRAPHIC FINDING IN THE CHEST. Chest/Abdomen CTA 01/30/19 19:36 IMPRESSION: No acute pulmonary embolism. No acute pathology. Qualifiers - * PATIENT BEING DISCHARGED WITH ANY OF THE FOLLOWING DIAGNOSIS: No Plan Discharge Plan: Patient is discharged to home with self-care. He is instructed to follow-up with his primary care provider within 1 week. Eat a low sodium diet, weigh daily. Recommend arranging for outpatient echocardiogram. He is advised to return to the emergency department as needed for concerning symptoms. Time Spent: Greater than 30 Minutes
== END 2019-01-31 17:00 | disposition home or self-care (01) ==
LOC: ER 12:25 → EH 23:48 → 4S 01-31 01:40
PROVIDERS: ADMIT Internal Medicine; ATTEND Internal Medicine
DX: R07.89 Other chest pain (principal); I42.0 Dilated cardiomyopathy; E11.9 Type 2 diabetes mellitus without complications; E78.5 Hyperlipidemia, unspecified; I10 Essential (primary) hypertension; R00.2 Palpitations; R06.02 Shortness of breath; F17.200 Nicotine dependence, unspecified, uncomplicated; R53.1 Weakness; Z79.82 Long term (current) use of aspirin; Z79.899 Other long term (current) drug therapy; Z82.49 Family history of ischemic heart disease and other diseases of the circulatory system; Z79.84 Long term (current) use of oral hypoglycemic drugs
CPT/HCPCS: 93005; 99285; 36415 ×2; 82553; 82962; 82550; 84443; 85025; 85610; 85730; 80053; 81001; 84484 ×2; 83036; 85379; 80061; 93017; 71045; 78452; 71275; 93010; A9500; J2785; J1815; J3490; Q9969

== ENCOUNTER 2019-05-04 13:38 | Observation (INO) | payer SELFPAY ==
[2019-05-04] MEDS ORDERED: ASPIRIN 81 MG TABLET, CHEWABLE PO ONE (14:36)
--- NOTE | 2019-05-04 14:38 | ER Document Report ---
ED Medical Screen (RME) - General Chief Complaint: Chest Pain Stated Complaint: CHEST PAINS Time Seen by Provider: 05/04/19 14:35 Primary Care Provider: [facility] [Primary Care Provider] - Follow up as needed Mode of Arrival: Ambulatory Information source: Patient Notes: 48-year-old male presented to ED for complaint of chest pain since this morning. He states he had a similar incident in about February and came into the emergency room and was diagnosed with "enlarged heart with fluid. He states he also has a history of diabetes blood pressure and cholesterol. He states his chest pain today is intermittent since 1 it comes and goes its in the center of his chest. He denies shortness of breath at this time. He is alert oriented respirations regular and unlabored speaking in full sentences. He states he does continue to smoke a pack a day and drinks at least weekly. I have greeted and performed a rapid initial assessment of this patient. A comprehensive ED assessment and evaluation of the patient, analysis of test results and completion of medical decision making process will be conducted by an additional ED providers. Dictation of this chart was performed using voice recognition software; therefore, there may be some unintended grammatical errors. TRAVEL OUTSIDE OF THE [place] IN LAST 30 DAYS: No - Related Data Allergies/Adverse Reactions: No Known Allergies Allergy (Verified 05/04/19 13:39) Past Medical History - Past Medical History Cardiac Medical History: Reports: Hx Hypertension Pulmonary Medical History: Denies: Hx Tuberculosis Endocrine Medical History: Reports: Hx Diabetes Mellitus Type 2 Renal/ Medical History: Denies: Hx Peritoneal Dialysis Past Surgical History: Reports: Hx Orthopedic Surgery - Hip. Denies: Hx Pacemaker - Immunizations Hx Diphtheria, Pertussis, Tetanus Vaccination: Yes - 2009 History of Influenza Vaccine for 08/2017 - 01/2018 Season: Refused Physical Exam - Vital signs Vitals: Temp Pulse Resp BP Pulse Ox 98.7 F 65 16 134/95 H 98 05/04/19 13:51 05/04/19 13:51 05/04/19 13:51 05/04/19 13:51 05/04/19 13:51 Course - Vital Signs Vital signs: Temp Pulse Resp BP Pulse Ox 98.7 F 65 16 134/95 H 98 05/04/19 13:51 05/04/19 13:51 05/04/19 13:51 05/04/19 13:51 05/04/19 13:51 Doctor's Discharge - Discharge Referrals: [facility] [Primary Care [facility]] - Follow up as needed
[2019-05-04 15:10] LABS: ABSOLUTE BASOPHILS # (AUTO) 0.1 10^3/uL (0.0-0.2); ABSOLUTE EOSINOPHILS # (AUTO) 0.2 10^3/uL (0.0-0.6); ABSOLUTE LYMPHOCYTES (AUTO) 2.3 10^3/uL (0.5-4.7); ABSOLUTE MONOCYTES (AUTO) 0.8 10^3/uL (0.1-1.4); ABSOLUTE NEUT (AUTO) 3.1 10^3/uL (1.7-8.2); BASOPHILS % (AUTO) 1.1 % (0-2); EOSINOPHILS % (AUTO) 2.7 % (0-6); HEMATOCRIT 39.2 % (37.9-51.0); HEMOGLOBIN 13.4 g/dL (13.5-17.0); LYMPHOCYTES % (AUTO) 35.1 % (13-45); MEAN CORPUSCULAR HEMOGLOBIN 30.7 pg (27.0-33.4); MEAN CORPUSCULAR HGB CONC 34.2 g/dL (32.0-36.0); MEAN CORPUSCULAR VOLUME 90 fl (80-97); MONOCYTES % (AUTO) 12.6 % (3-13); PLATELET COUNT 113 10^3/uL (150-450); RED BLOOD COUNT 4.38 10^6/uL (4.35-5.55); RED CELL DISTRIBUTION WIDTH 13.5 % (11.5-14.0); SEGMENTED NEUTROPHILS % (AUTO) 48.5 % (42-78); TOTAL CELLS COUNTED % (AUTO) 100 %; WHITE BLOOD COUNT 6.5 10^3/uL (4.0-10.5)
[2019-05-04 15:11] LABS: AMORPHOUS SEDIMENT,URINE TRACE /HPF; APPEARANCE,URINE TURBID; BILIRUBIN,URINE NEGATIVE (NEGATIVE); COLOR,URINE YELLOW; GLUCOSE, URINE 150 mg/dL (NEGATIVE); KETONES,URINE TRACE mg/dL (NEGATIVE); LEUKOCYTE ESTERASE,URINE NEGATIVE (NEGATIVE); NITRITE,URINE NEGATIVE (NEGATIVE); PROTEIN,URINE 30 mg/dL (NEGATIVE)
--- NOTE | 2019-05-04 15:20 | RADIOLOGY REPORT (SQ) ---
EXAM DESCRIPTION: CHEST 2 VIEWS COMPLETED DATE/TIME: 05/04/2019 3:01 pm REASON FOR STUDY: chest pain states dx enlarged heart in february COMPARISON: AP chest 01/30/2019 EXAM PARAMETERS: NUMBER OF VIEWS: two views TECHNIQUE: Digital Frontal and Lateral radiographic views of the chest acquired. RADIATION DOSE: NA LIMITATIONS: none FINDINGS: LUNGS AND PLEURA: No opacities, masses or pneumothorax. No pleural effusion. MEDIASTINUM AND HILAR STRUCTURES: No masses or contour abnormalities. HEART AND VASCULAR STRUCTURES: Heart normal size. No evidence for failure. BONES: No acute findings. HARDWARE: None in the chest. OTHER: No other significant finding. IMPRESSION: NO ACUTE RADIOGRAPHIC FINDING IN THE CHEST. TECHNICAL DOCUMENTATION: JOB ID: [id number] [employer]- All Rights Reserved Reading location - IP/workstation name: [email or web address]
[2019-05-04 15:22] LABS: ALANINE AMINOTRANSFERASE 49 U/L (21-72); ALBUMIN 4.3 g/dL (3.5-5.0); ALKALINE PHOSPHATASE 61 U/L (38-126); ANION GAP 7 (5-19); ASPARTATE AMINO TRANSFERASE 28 U/L (17-59); BILIRUBIN,DIRECT 0.2 mg/dL (0.0-0.4); BILIRUBIN,TOTAL 0.4 mg/dL (0.2-1.3); BLOOD UREA NITROGEN 15 mg/dL (7-20); CALCIUM 9.9 mg/dL (8.4-10.2); CARBON DIOXIDE 30 mmol/L (22-30); CHLORIDE 102 mmol/L (98-107); GLUCOSE 153 mg/dL (75-110); POTASSIUM 4.2 mmol/L (3.6-5.0); SODIUM 138.8 mmol/L (137-145)
[2019-05-04 15:24] LABS: URINE AMPHETAMINES SCREEN NEGATIVE; URINE BARBITURATES SCREEN NEGATIVE; URINE BENZODIAZEPINES SCREEN NEGATIVE; URINE COCAINE SCREEN NEGATIVE; URINE MARIJUANA (THC) SCREEN NEGATIVE; URINE METHADONE SCREEN NEGATIVE; URINE PHENCYCLIDINE SCREEN NEGATIVE
[2019-05-04 15:34] LABS: CREATINE KINASE MB 0.55 ng/mL (<4.55); NT PRO BNP 231 pg/mL (<125)
[2019-05-04 15:35] LABS: TROPONIN I < 0.012 ng/mL
[2019-05-04] MEDS ORDERED: MAG HYDROX/AL HYDROX/SIMETH SUSP 30 ML UDCUP PO ONE (16:15)
[2019-05-04] MEDS ORDERED: METOCLOPRAMIDE HCL ORAL SOLN 10 MG/10 ML UDCUP PO ONE (16:15)
[2019-05-04] MEDS ORDERED: LIDOCAINE 2% VISCOUS SOLN 20 ML UDCUP PO ONE (16:15)
--- NOTE | 2019-05-04 16:16 | ER Document Report ---
ED General - General Chief Complaint: Chest Pain Stated Complaint: CHEST PAINS Time Seen by Provider: 05/04/19 14:35 Mode of Arrival: Ambulatory TRAVEL OUTSIDE OF THE [place] IN LAST 30 DAYS: No - HPI Notes: 48-year-old male to the emergency department complaints of left-sided chest pain that began this morning. The pain comes and goes lasting only a couple of seconds. States it feels better when he takes a big deep breath and then seems to get worse when he exhales. Denies nausea vomiting, denies shortness of breath, denies diaphoresis. States that about 3 months ago he came in with similar complaints and was admitted to the hospital. He was told that he had fluid on his heart. Was to follow-up with cardiology but has not seen them and does not have an appointment until 1 more month. Admits that he smokes. He is a diabetic on metformin and Lantus. Does admit that he has had better control of his sugars in the past 3 months. States that sugars now running in the 100s. Does admit that he continues to smoke. There is no family history of heart attacks. He has never had a heart attack himself. When he was admitted to the hospital 3 months ago he did have a stress test and it was negative. Of note he also had an echo at that time and was found to have a dilated cardiomyopathy with an ejection fraction of about 40%. He was medically managed. Denies fevers or chills, denies cough, abdominal pain, flank pain, urinary complaints. He denies any illicit drug use. He was given an aspirin upon arrival and he states that his pain has not changed. Does admit to frequent belching as of late. His recent travel, leg swelling, history of clots in his legs. - Related Data Allergies/Adverse Reactions: No Known Allergies Allergy (Verified 05/04/19 13:39) Past Medical History - General Information source: Patient - Social History Smoking Status: Current Every Day Smoker Frequency of alcohol use: None Drug Abuse: None. denies: Cocaine Family History: CAD, DM, Hyperlipidemia, Hypertension Patient has suicidal ideation: No Patient has homicidal ideation: No - Past Medical History Cardiac Medical History: Reports: Hx Hypercholesterolemia, Hx Hypertension, Other - History of ejection fraction of 40% Pulmonary Medical History: Denies: Hx Tuberculosis Endocrine Medical History: Reports: Hx Diabetes Mellitus Type 2 Renal/ Medical History: Denies: Hx Peritoneal Dialysis Past Surgical History: Reports: Hx Orthopedic Surgery - Hip. Denies: Hx Pacemaker - Immunizations Hx Diphtheria, Pertussis, Tetanus Vaccination: Yes - 2009 Review of Systems - Review of Systems Constitutional: denies: Chills, Fever EENT: No symptoms reported Cardiovascular: Chest pain. denies: Palpitations, Heart racing, Syncope, Dizziness, Lightheaded, Edema Respiratory: denies: Cough, Short of breath, Wheezing Gastrointestinal: denies: Abdominal pain, Diarrhea, Nausea, Vomiting Genitourinary: denies: Frequency, Flank pain Musculoskeletal: denies: Leg swelling Skin: denies: Dryness, Rash Neurological/Psychological: denies: Weakness, Numbness -: Yes All other systems reviewed and negative Physical Exam - Vital signs Vitals: Temp Pulse Resp BP Pulse Ox 98.7 F 65 16 134/95 H 98 05/04/19 13:51 05/04/19 13:51 05/04/19 13:51 05/04/19 13:51 05/04/19 13:51 Interpretation: Normal - General General appearance: Appears well In distress: None - HEENT Head: Normocephalic Eyes: Normal Pupils: PERRL - Respiratory Respiratory status: No respiratory distress Chest status: Nontender Breath sounds: Normal. No: Rales, Rhonchi, Stridor, Wheezing Chest palpation: Normal - Cardiovascular Rhythm: Regular Heart sounds: Normal auscultation, S1 appreciated, S2 appreciated Murmur: No Notes: No leg edema - Abdominal Inspection: Normal Distension: No distension Bowel sounds: Normal Tenderness: Nontender - Extremities General upper extremity: Normal inspection, Nontender, Normal color, Normal ROM, Normal temperature General lower extremity: Normal inspection, Nontender, Normal color, Normal ROM, Normal temperature, Normal weight bearing. No: Ansley's sign - Neurological Neuro grossly intact: Yes Cognition: Normal Orientation: AAOx4 [place] Coma Scale Eye Opening: Spontaneous Sergey Coma Scale Verbal: Oriented [place] Coma Scale Motor: Obeys Commands Sergey Coma Scale Total: 15 Speech: Normal Cranial nerves: Normal - Psychological Associated symptoms: Normal affect, Normal mood - Skin Skin Temperature: Warm Skin Moisture: Dry Skin Color: Normal Course - Vital Signs Vital signs: Temp Pulse Resp BP Pulse Ox 98.7 F 65 18 154/99 H 100 05/04/19 13:51 05/04/19 13:51 05/04/19 19:01 05/04/19 19:01 05/04/19 20:00 - Laboratory Result Diagrams: 05/04/19 14:45 05/04/19 14:45 Laboratory results interpreted by me: 05/04/19 05/04/19 05/04/19 14:45 14:45 14:45 Hgb 13.4 L Plt Count 113 L Glucose 153 H NT-Pro-B Natriuret Pep 231 H Urine Protein Urine Glucose (UA) Urine Ketones Urine Urobilinogen 05/04/19 14:45 Hgb Plt Count Glucose NT-Pro-B Natriuret Pep Urine Protein 30 H Urine Glucose (UA) 150 H Urine Ketones TRACE H Urine Urobilinogen 2.0 H - EKG Interpretation by Me EKG shows normal: Sinus rhythm Rate: Normal Rhythm: NSR Voltage: Consistant with LVH When compared to previous EKG there are: No significant change - Transfer of Care Notes: 05/04/[address] Abdi, ER Attending. We discussed patient's history and his HEART score of 4, recent negative stress test but dilated cardiomyopathy from last echo in January. She suggests after 2nd trop, discussing with cards. Noted second negative Trop -- Paged fisher sponge hooking. Spoke with Dr. Lennon. He thinks patient should be admitted to hospitalist team, trend troponins further, get another echo, further manage medically. He will consult on patient. Spoke with Dr. Talley about patient. He accepts patient to his service. Aware of labs, EKG, chest XR. Would like patient to go to Telemetry. Discharge - Discharge Clinical Impression: Chest pain Condition: Stable Disposition: ADMITTED INPATIENT Admitting Provider: Mayank (Hospitalist) Unit Admitted: Telemetry
--- NOTE | 2019-05-04 17:30 | EKG REPORT ---
SEVERITY:- ABNORMAL ECG - SINUS RHYTHM CONSIDER LEFT VENTRICULAR HYPERTROPHY : Confirmed by: Josse Barrera MD 04-May-2019 17:29:55
[2019-05-04] MEDS ORDERED: ACETAMINOPHEN 325 MG TABLET PO PRN (18:19)
[2019-05-04] MEDS ORDERED: ONDANSETRON HCL INJ/PF 4 MG/2 ML SDV IV PRN (18:19)
[2019-05-04] MEDS ORDERED: DEXTROSE 50%-WATER 25 GM/50 ML DISP.SYRIN IV PRN ×2 (18:23)
[2019-05-04] MEDS ORDERED: MORPHINE SULFATE 10 MG/ML INJ IV PRN (18:23)
[2019-05-04] MEDS ORDERED: GLUCAGON,HUMAN RECOMB 1 MG INJ IM PRN (18:23)
[2019-05-04] MEDS ORDERED: DEXTROSE 40% GEL 15 GM TUBE PO PRN ×2 (18:23)
--- NOTE | 2019-05-04 18:42 | PDOC H&P ---
History of Present Illness Admission Date/PCP: 05/04/19 18:12 [facility] Patient complains of: Chest pain from this morning History of Present Illness: TOBY CIFUENTES JR is a 48 year old male with history of diabetes mellitus, hypertension, hypercholesterolemia, cardiomyopathy EF of around 35 to 40% came to the emergency room with complaints of left-sided chest pains. Chest pain started this morning if he woke up with chest pains pain scale is 3/10 squeezing pain localized not associated with nausea not associated dizzy spells not associated with sweating but complaining of shortness of breath with the chest pains. He decided to come to the emergency room for further evaluation. Denies any headaches dizzy spells. agreed To stay in the hospital. Past Medical History Cardiac Medical History: Reports: Hyperlipidema, Hypertension, Other - History of ejection fraction of 40% Pulmonary Medical History: Denies: Tuberculosis Endocrine Medical History: Reports: Diabetes Mellitus Type 2 Past Surgical History Past Surgical History: Reports: Orthopedic Surgery - Hip Denies: Pacemaker Social History Information Source: Patient Smoking Status: Current Every Day Smoker Frequency of Alcohol Use: None Hx Recreational Drug Use: No Drugs: None Hx Prescription Drug Abuse: No - Advance Directive Resuscitation Status: Full Code Family History Family History: CAD, DM, Hyperlipidemia, Hypertension Parental Family History Reviewed: Yes - Mother has history of congestive heart failure and lupus. Children Family History Reviewed: Yes Sibling(s) Family History Reviewed.: Yes Medication/Allergy Home Medications: RX: Acetaminophen [Tylenol 325 mg Tablet] 650 mg PO Q4HP PRN tablet 01/31/19 RX: Aspirin [Ecotrin 81 mg EC Tablet] 81 mg PO DAILY tabec 01/31/19 RX: Atorvastatin Calcium [Lipitor 20 mg Tablet] 20 mg PO QHS #30 tablet 01/31/19 RX: Cyclobenzaprine HCl [Flexeril 10 mg Tablet] 5 mg PO TID tablet 01/31/19 RX: Glipizide [Glucotrol Xl] 2.5 mg PO ACBRKFST #30 tab.er.24 01/31/19 RX: Metformin HCl [Glucophage 500 mg Tablet] 500 mg PO BID #60 tablet 01/31/19 RX: Nicotine [Nicoderm 7 mg/24 Hr Transdermal Patch] 1 each TD DAILY #30 patch.td24 01/31/19 RX: Carvedilol [Coreg] 3.125 mg PO Q12 #60 tablet 02/01/19 RX: Lisinopril [Zestril] 5 mg PO DAILY #30 tablet 02/01/19 Allergies/Adverse Reactions: No Known Allergies Allergy (Verified 05/04/19 13:39) Review of Systems Constitutional: PRESENT: fatigue, weakness Eyes: ABSENT: visual disturbances Ears: ABSENT: hearing changes Nose, Mouth, and Throat: ABSENT: sore throat Cardiovascular: PRESENT: chest pain Respiratory: PRESENT: dyspnea Gastrointestinal: ABSENT: abdominal pain, constipation, diarrhea, hematemesis, hematochezia, nausea, vomiting Genitourinary: ABSENT: dysuria, hematuria Neurological: ABSENT: abnormal gait, abnormal speech, confusion, dizziness, focal weakness, syncope Psychiatric: ABSENT: anxiety, depression, homidical ideation, suicidal ideation Physical Exam Vital Signs: Temp Pulse Resp BP Pulse Ox 98.7 F 65 13 148/92 H 100 05/04/19 13:51 05/04/19 13:51 05/04/19 16:48 05/04/19 17:01 05/04/19 17:01 Intake & Output 05/03/19 05/04/19 05/05/19 06:59 06:59 06:59 Weight 81.647 kg General appearance: PRESENT: no acute distress Head exam: PRESENT: atraumatic Eye exam: PRESENT: PERRLA Mouth exam: PRESENT: moist, tongue midline Teeth exam: PRESENT: poor dentation Neck exam: ABSENT: carotid bruit, JVD, lymphadenopathy, thyromegaly Respiratory exam: PRESENT: clear to auscultation antonella. ABSENT: rales, rhonchi, wheezes Cardiovascular exam: PRESENT: RRR. ABSENT: diastolic murmur, rubs, systolic murmur GI/Abdominal exam: PRESENT: normal bowel sounds, soft. ABSENT: distended, guarding, mass, organolmegaly, rebound, tenderness Rectal exam: PRESENT: deferred Extremities exam: PRESENT: full ROM. ABSENT: calf tenderness, clubbing, pedal edema Neurological exam: PRESENT: alert, awake, oriented to person, oriented to place, oriented to time, oriented to situation, CN II-XII grossly intact. ABSENT: motor sensory deficit Psychiatric exam: PRESENT: appropriate affect, normal mood. ABSENT: homicidal ideation, suicidal ideation Results Laboratory Results: 05/04/19 14:45 05/04/19 14:45 05/04/19 05/04/19 05/04/19 14:45 14:45 14:45 WBC 6.5 RBC 4.38 Hgb 13.4 L Hct 39.2 MCV 90 MCH 30.7 MCHC 34.2 RDW 13.5 Plt Count 113 L Seg Neutrophils % 48.5 Lymphocytes % 35.1 Monocytes % 12.6 Eosinophils % 2.7 Basophils % 1.1 Absolute Neutrophils 3.1 Absolute Lymphocytes 2.3 Absolute Monocytes 0.8 Absolute Eosinophils 0.2 Absolute Basophils 0.1 Sodium 138.8 Potassium 4.2 Chloride 102 Carbon Dioxide 30 Anion Gap 7 BUN 15 Creatinine 0.87 Est GFR ( Amer) > 60 Est GFR (Non-Af Amer) > 60 Glucose 153 H Calcium 9.9 Total Bilirubin 0.4 AST 28 ALT 49 Alkaline Phosphatase 61 Total Protein 7.0 Albumin 4.3 Lipase 108.0 Urine Color YELLOW Urine Appearance TURBID Urine pH 6.0 Ur Specific [place] 1.030 Urine Protein 30 H Urine Glucose (UA) 150 H Urine Ketones TRACE H Urine Blood NEGATIVE Urine Nitrite NEGATIVE Ur Leukocyte Esterase NEGATIVE Urine RBC (Auto) 2 05/04/19 05/04/19 14:45 16:48 CK-MB (CK-2) 0.55 Troponin I < 0.012 < 0.012 NT-Pro-B Natriuret Pep 231 H Impressions: Chest X-Ray 05/04/19 14:36 IMPRESSION: NO ACUTE RADIOGRAPHIC FINDING IN THE CHEST. Assessment and Plan - Diagnosis (1) Chest pain Is this a current diagnosis for this admission?: Yes Plan: 05/04/[id number]-ohas-old male came to the emergency room with chest pain he is going to be admitted to the [facility]. Observation status. Cardiology consult was requested. 2 troponins and EKGs are negative for acute changes. Plan is to continue to trend the troponins and cardiac enzymes. Started on aspirin, atorvastatin, morphine 2 mg IV every 4 PRN for chest pain, oxygen 2 L nasal cannula. Start on Lovenox 40 mg subcu daily. Lipid panel was requested for the morning. It my opinion chest pain is noncardiac in nature. (2) Diabetes Qualifiers: Diabetes mellitus type: type 2 Is this a current diagnosis for this admission?: No Plan: 05/04/2019-patient has history of type 2 diabetes mellitus on metformin at home April 11 and is going to be on hold during this hospital stay. Started on insulin sliding scale before meals and at bedtime and to check hemoglobin A1c tomorrow dietary consult is going to be requested. Blood sugar is 153. (3) Hypertension Is this a current diagnosis for this admission?: No Plan: 05/04/2019-patient has history of hypertension is on lisinopril and Coreg at home. Her pressure is 148/92. Coreg and lisinopril resumed during this hospital stay. (4) Tobacco dependency Is this a current diagnosis for this admission?: Yes Plan: 05/04/2019-patient history of chronic smoking smokes 1 pack/day. Smoking counseling was provided more than 15 minutes and strongly advised to quit smoking. Placed on nicotine patch 21 mg daily. (5) Shortness of breath Is this a current diagnosis for this admission?: Yes Plan: 05/04/2019-patient came in with nonspecific complaints of shortness of breath. Associated left-sided chest pain. CTA of the chest was requested. (6) Cardiomyopathy Is this a current diagnosis for this admission?: No Plan: 05/04/2019-patient has a recent stress test was done EF is around 38%. I spoke to Dr. Tyler he wants to repeat the echocardiogram tomorrow. Patient is not in fluid overload. Euvolemic. Patient might have a chronic systolic heart failure. - Time Time Spent with patient: 25-34 minutes Medications reviewed and adjusted accordingly: Yes Anticipated discharge: Home
[2019-05-04] MEDS: FAMOTIDINE 20 MG TABLET PO SCH (21:37)
[2019-05-04] MEDS: ATORVASTATIN CALCIUM 20 MG TABLET PO SCH (21:37)
[2019-05-04] MEDS: CARVEDILOL 3.125 MG TABLET PO SCH (21:37)
--- NOTE | 2019-05-04 21:53 | RADIOLOGY REPORT (SQ) ---
EXAM DESCRIPTION: CT CHEST ANGIOGRAPHY WITHOUT THEN WITH IV CONTRAST COMPLETED DATE/TME: 05/04/2019 00:00 CLINICAL HISTORY: 48 years Male chest pain COMPARISON: 01/30/2019. TECHNIQUE: Contiguous axial images were obtained through the chest during the infusion of IV contrast. Reformatted images obtained. MIP reformatted images obtained. This exam was performed according to our department optimization program which includes automated exposure control, adjustment of the mA and/or kv according to patient size and/or use of iterative reconstruction technique. FINDINGS: The aorta is normal in caliber without dissection or rupture. No pericardial or pleural effusion. There is no significant left hilar adenopathy. Mildly prominent mediastinal and right hilar lymph nodes are noted. No evidence of pulmonary embolus. No evidence of acute consolidation or infiltrate. No pulmonary contusion noted. Mild scoliosis. IMPRESSION:No evidence of pulmonary embolus Mildly prominent mediastinal and hilar lymph nodes which are nonspecific.
[2019-05-04] MEDS: INSULIN REG, HUMAN 100 UNIT/ML 3 ML VIAL (PYX) SUBCUT SCH (23:03)
--- NOTE | 2019-05-04 23:13 | EKG REPORT ---
SEVERITY:- ABNORMAL ECG - SINUS RHYTHM LEFT VENTRICULAR HYPERTROPHY : Confirmed by: Josse Barrera MD 04-May-2019 23:12:36
[2019-05-04 23:35] LABS: CREATINE KINASE MB 0.49 ng/mL (<4.55); TROPONIN I 0.014 ng/mL
[2019-05-05] MEDS ORDERED: NICOTINE 7 MG/24 HR PATCH.TD24 TD ONE (03:45)
[2019-05-05 05:30] LABS: ABSOLUTE BASOPHILS # (AUTO) 0.1 10^3/uL (0.0-0.2); ABSOLUTE EOSINOPHILS # (AUTO) 0.2 10^3/uL (0.0-0.6); ABSOLUTE MONOCYTES (AUTO) 0.7 10^3/uL (0.1-1.4); ABSOLUTE NEUT (AUTO) 2.5 10^3/uL (1.7-8.2); EOSINOPHILS % (AUTO) 2.8 % (0-6); HEMATOCRIT 36.8 % (37.9-51.0); HEMOGLOBIN 12.4 g/dL (13.5-17.0); LYMPHOCYTES % (AUTO) 37.1 % (13-45); MEAN CORPUSCULAR HEMOGLOBIN 30.4 pg (27.0-33.4); MEAN CORPUSCULAR HGB CONC 33.8 g/dL (32.0-36.0); MEAN CORPUSCULAR VOLUME 90 fl (80-97); MONOCYTES % (AUTO) 13.2 % (3-13); RED CELL DISTRIBUTION WIDTH 13.6 % (11.5-14.0); SEGMENTED NEUTROPHILS % (AUTO) 45.9 % (42-78); TOTAL CELLS COUNTED % (AUTO) 100 %; WHITE BLOOD COUNT 5.5 10^3/uL (4.0-10.5)
[2019-05-05 05:53] LABS: ALANINE AMINOTRANSFERASE 42 U/L (21-72); ALBUMIN 3.7 g/dL (3.5-5.0); ALKALINE PHOSPHATASE 57 U/L (38-126); ANION GAP 8 (5-19); ASPARTATE AMINO TRANSFERASE 26 U/L (17-59); BILIRUBIN,DIRECT 0.2 mg/dL (0.0-0.4); BILIRUBIN,TOTAL 0.5 mg/dL (0.2-1.3); BLOOD UREA NITROGEN 15 mg/dL (7-20); CALCIUM 9.8 mg/dL (8.4-10.2); CARBON DIOXIDE 26 mmol/L (22-30); CHLORIDE 104 mmol/L (98-107); CHOLESTEROL 159.37 mg/dL (0-200); GLUCOSE 175 mg/dL (75-110); POTASSIUM 4.1 mmol/L (3.6-5.0); SODIUM 138.1 mmol/L (137-145); TOTAL PROTEIN 6.2 g/dL (6.3-8.2); TRIGLYCERIDES 105 mg/dL (<150)
[2019-05-05 05:59] LABS: PLATELET COUNT 128 10^3/uL (150-450)
[2019-05-05 06:00] LABS: CREATINE KINASE MB 0.48 ng/mL (<4.55); TROPONIN I 0.015 ng/mL
[2019-05-05 06:04] LABS: DIRECT LDL 100 mg/dL (<100)
[2019-05-05] MEDS: INSULIN REG, HUMAN 100 UNIT/ML 3 ML VIAL (PYX) SUBCUT SCH ×4 (09:05→22:15)
[2019-05-05] MEDS: GLIPIZIDE XL 2.5 MG TAB.ER.24 PO SCH (09:50)
[2019-05-05] MEDS ORDERED: NICOTINE 7 MG/24 HR PATCH.TD24 TD SCH (10:00)
[2019-05-05] MEDS: FAMOTIDINE 20 MG TABLET PO SCH ×2 (10:05→22:16)
[2019-05-05] MEDS: ENOXAPARIN SODIUM INJ 40 MG/0.4 ML DISP.SYRIN SUBCUT SCH (10:07)
[2019-05-05] MEDS: ASPIRIN 81 MG TABLET, ENT COATED PO SCH (10:07)
[2019-05-05] MEDS: CYCLOBENZAPRINE HCL 10 MG TABLET PO SCH ×3 (10:08→17:27)
[2019-05-05] MEDS: LISINOPRIL 5 MG TABLET PO SCH (10:12)
[2019-05-05] MEDS: CARVEDILOL 3.125 MG TABLET PO SCH ×2 (10:12→22:16)
--- NOTE | 2019-05-05 10:19 | XCELERA REPORT ---
[address] [address] Transthoracic Echocardiogram Report Name: VAEN YEH TOBY Age: 48 yrs Gender: Male : 1970 Patient Status: Inpatient Patient Location: [place] [address]^A Study Date: 05/04/2019 06:57 PM Height: 76 in Weight: 180 lb BSA: 2.1 m2 Reason For Study: chest pain Ordering Physician: MICHAEL VALDOVINOS Performed By: Jorge Lemons Interpretation Summary Suboptimal quality study with amny poor images significantly limiting cardiac evaluation. LV cavity ? borderline dilated with mildly decreased LVEF, visually estimated at 45-50%. Considre better quality echo/ MUGA scaan for more accurate EF estimation if clinically relevant. The right ventricular systolic function appears normal. The aortic valve is not well visualized but doppler data provided not suggestive of any significant stenosis. IVC borderline dilated with decreased respiratory variation- estimated mean RA pressure at 15 mm Hg. The aortic root is normal size. MMode/2D Measurements & Calculations RVDd: 2.1 cm LVIDd: 6.2 cm FS: 27.1 % Ao root diam: 3.5 cm IVSd: 0.94 cm LVIDs: 4.5 cm EDV(Teich): 191.7 ml LVPWd: 1.2 cm ESV(Teich): 92.4 ml Ao root area: 9.5 cm2 LA dimension: 2.2 cm EF(Teich): 51.8 % LVOT diam: 2.5 cm LVOT area: 5.0 cm2 Doppler Measurements & Calculations MV E max sara: MV P1/2t max sara: Ao V2 max: LV V1 max P.8 cm/sec 62.8 cm/sec 100.1 cm/sec 2.4 mmHg MV A max sara: MV P1/2t: 118.9 msec Ao max PG: LV V1 max: 50.9 cm/sec MVA(P1/2t): 1.9 cm2 4.0 mmHg 78.0 cm/sec MV E/A: 1.1 MV dec slope: [place](V,D): 3.9 cm2 154.8 cm/sec2 MV dec time: 0.21 sec PA V2 max: MV P1/2t-pr_phl: 76.0 cm/sec 118.9 msec PA max P.3 mmHg Left Ventricle The left ventricle is borderline dilated. The transmitral spectral Doppler flow pattern is abnormal for age. Not all wall segments were well visualized. Right Ventricle The right ventricle is not well visualized secondary to technical limitations. The right ventricular systolic function is normal. Atria Right atrium not well visualized secondary to technical limitations. The left atrium is not well visualized secondary to technical limitations. Mitral Valve MV not well visualized but leaflets appear to open well. Aortic Valve The aortic valve is not well visualized secondary to technical limitations. There is a peak gradient of 4 mm of Hg. Tricuspid Valve The tricuspid valve is not well visualized secondary to technical limitations. Tricuspid regurgitation jet envelope not well defined to measure RV systolic pressure accurately. RVSP could not be estimated. Pulmonic Valve The pulmonic valve is not well visualized. Great Vessels The aortic root is normal size. IVC borderline dilated with decreased respiratory variation- estimated mean RA pressure at 15 mm Hg. : MICHAEL VALDOVINOS > Abel Lennon
[2019-05-05 12:29] LABS: CREATINE KINASE MB 0.41 ng/mL (<4.55)
[2019-05-05 12:30] LABS: TROPONIN I < 0.012 ng/mL
--- NOTE | 2019-05-05 13:49 | PDOC CONSULTATION ---
Consultation Consult Date: 05/05/19 Provider Consulted: MICHAEL VALDOVINOS Consult reason:: chest pain History of Present Illness Admission Date/PCP: 05/04/19 18:12 [facility] History of Present Illness: TOBY CIFUENTES JR is a 48 year old male With past medical history of diabetes mellitus, hypertension comes in with complaints of intermittent episodes of chest pain/pressure, left-sided with intermittent radiation of pain along the left side of neck and left, mostly associated with exertion and at times at rest. He claims that he was admitted at our facility few months ago with similar complaints and at that time had a nuclear stress test which showed decrease LVEF but no inducible ischemia. Patient claims that he frequently followed with a local clinic where his beta- linsey and ELIAZAR inhibitor were discontinued and currently at home patient takes a statin along with hydrochlorothiazide therapy. 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 He admits to smoking a pack of cigarettes a day and drinks alcohol so cially. He is and lives with his . He claims that 1 of his sisters around 50 years of age of heart disease. He denies any swelling of his lower extremities or palpitations or dizziness or any passing out episodes. Past Medical History Cardiac Medical History: Reports: Hyperlipidema, Hypertension, Other - History of ejection fraction of 40% Pulmonary Medical History: Denies: Tuberculosis Endocrine Medical History: Reports: Diabetes Mellitus Type 2 Psychiatric Medical History: Reports: Tobacco Dependency Past Surgical History Past Surgical History: Reports: Orthopedic Surgery - Hip Denies: Pacemaker Social History Lives with: Family Smoking Status: Current Every Day Smoker Frequency of Alcohol Use: Social Hx Recreational Drug Use: No Drugs: None Hx Prescription Drug Abuse: No - Advance Directive Resuscitation Status: Full Code Family History Family History: CAD, DM, Hyperlipidemia, Hypertension Parental Family History Reviewed: Yes Children Family History Reviewed: No Sibling(s) Family History Reviewed.: Yes - Sister had heart disease and around 50 years of age. Medication/Allergy Home Medications: Atorvastatin Calcium [Lipitor 20 mg Tablet] 20 mg PO QHS #30 tablet 01/31/19 Insulin Glargine,Hum.rec.anlog [Lantus Insulin 100 Unit/1 ml 10 ml] 20 unit SUBCUT DAILY 05/05/19 Lisinopril/Hydrochlorothiazide [Lisinopril-Hctz 20-25 mg Tab] 1 each PO DAILY 05/05/19 Metformin HCl 1,000 mg PO BID 05/05/19 Allergies/Adverse Reactions: No Known Allergies Allergy (Verified 05/04/19 13:39) Review of Systems Constitutional: PRESENT: fatigue, weakness Cardiovascular: PRESENT: chest pain, dyspnea on exertion Physical Exam Vital Signs: Temp Pulse Resp BP Pulse Ox 98.0 F 62 18 144/94 H 97 05/05/19 07:34 05/05/19 07:34 05/05/19 07:34 05/05/19 07:34 05/05/19 07:34 Intake & Output 05/04/19 05/05/19 05/06/19 06:59 06:59 06:59 Intake Total 500 Balance 500 Weight 83.9 kg General appearance: PRESENT: no acute distress Head exam: PRESENT: atraumatic, normocephalic Mouth exam: PRESENT: neck supple Neck exam: PRESENT: full ROM, other - No JVD noted. Respiratory exam: PRESENT: clear to auscultation antonella, unlabored Cardiovascular exam: PRESENT: +S1, +S2 Pulses: PRESENT: normal radial pulses, normal dorsalis pedis pul, +2 pedal pulses bilateral GI/Abdominal exam: PRESENT: normal bowel sounds, soft Neurological exam: PRESENT: alert, awake, oriented to person, oriented to place, oriented to time, CN II-XII grossly intact Results Laboratory Results: 05/05/19 04:50 05/05/19 04:50 05/04/19 05/04/19 05/04/19 14:45 14:45 14:45 WBC 6.5 RBC 4.38 Hgb 13.4 L Hct 39.2 MCV 90 MCH 30.7 MCHC 34.2 RDW 13.5 Plt Count 113 L Seg Neutrophils % 48.5 Lymphocytes % 35.1 Monocytes % 12.6 Eosinophils % 2.7 Basophils % 1.1 Absolute Neutrophils 3.1 Absolute Lymphocytes 2.3 Absolute Monocytes 0.8 Absolute Eosinophils 0.2 Absolute Basophils 0.1 Sodium 138.8 Potassium 4.2 Chloride 102 Carbon Dioxide 30 Anion Gap 7 BUN 15 Creatinine 0.87 Est GFR ( Amer) > 60 Est GFR (Non-Af Amer) > 60 Glucose 153 H Calcium 9.9 Magnesium Total Bilirubin 0.4 AST 28 ALT 49 Alkaline Phosphatase 61 Total Protein 7.0 Albumin 4.3 Triglycerides Cholesterol LDL Cholesterol Direct VLDL Cholesterol HDL Cholesterol Lipase 108.0 TSH Urine Color YELLOW Urine Appearance TURBID Urine pH 6.[address] 1.030 Urine Protein 30 H Urine Glucose (UA) 150 H Urine Ketones TRACE H Urine Blood NEGATIVE Urine Nitrite NEGATIVE Ur Leukocyte Esterase NEGATIVE Urine RBC (Auto) 2 05/05/19 05/05/19 05/05/19 04:50 04:50 04:50 WBC 5.5 RBC 4.10 L Hgb 12.4 L Hct 36.8 L MCV 90 MCH 30.4 MCHC 33.8 RDW 13.6 Plt Count 128 L Seg Neutrophils % 45.9 Lymphocytes % 37.1 Monocytes % 13.2 H Eosinophils % 2.8 Basophils % 1.0 Absolute Neutrophils 2.5 Absolute Lymphocytes 2.0 Absolute Monocytes 0.7 Absolute Eosinophils 0.2 Absolute Basophils 0.1 Sodium 138.1 Potassium 4.1 Chloride 104 Carbon Dioxide 26 Anion Gap 8 BUN 15 Creatinine 0.67 Est GFR ( Amer) > 60 Est GFR (Non-Af Amer) > 60 Glucose 175 H Calcium 9.8 Magnesium 1.8 Total Bilirubin 0.5 AST 26 ALT 42 Alkaline Phosphatase 57 Total Protein 6.2 L Albumin 3.7 Triglycerides 105 Cholesterol 159.37 LDL Cholesterol Direct 100 VLDL Cholesterol 21.0 HDL Cholesterol 52 Lipase TSH 1.62 Urine Color Urine Appearance Urine pH Ur Specific Trail Urine Protein Urine Glucose (UA) Urine Ketones Urine Blood Urine Nitrite Ur Leukocyte Esterase Urine RBC (Auto) 05/04/19 05/04/19 05/04/19 14:45 16:48 22:58 Creatine Kinase 78 CK-MB (CK-2) 0.55 Troponin I < 0.012 < 0.012 NT-Pro-B Natriuret Pep 231 H 05/04/19 05/05/19 05/05/19 22:58 04:50 04:50 Creatine Kinase 63 CK-MB (CK-2) 0.49 0.48 Troponin I 0.014 0.015 NT-Pro-B Natriuret Pep 05/05/19 05/05/19 11:30 11:30 Creatine Kinase 60 CK-MB (CK-2) 0.41 Troponin I < 0.012 NT-Pro-B Natriuret Pep Impressions: Chest/Abdomen CTA 05/04/19 00:00 IMPRESSION:No evidence of pulmonary embolus Mildly prominent mediastinal and hilar lymph nodes which are nonspecific. Chest X-Ray 05/04/19 14:36 IMPRESSION: NO ACUTE RADIOGRAPHIC FINDING IN THE CHEST. Assessment & Plan - Diagnosis (1) Chest pain Is this a current diagnosis for this admission?: Yes (2) Systolic heart failure Qualifiers: Heart failure chronicity: unspecified Qualified Code(s): I50.20 - Unspecified systolic (congestive) heart failure Is this a current diagnosis for this admission?: Yes (3) Diabetes Qualifiers: Diabetes mellitus type: type 2 Is this a current diagnosis for this admission?: No (4) Hypertension Qualifiers: Hypertension type: essential hypertension Qualified Code(s): I10 - Essen tial (primary) hypertension Is this a current diagnosis for this admission?: Yes (5) Tobacco dependency Is this a current diagnosis for this admission?: Yes - Notes Notes: EKG shows sinus rhythm with LVH. Patient does have multiple risk factors for atherosclerotic cardiovascular disease and will try to optimize his medical therapy with addition of long-acting nitrate in addition to aspirin, statin, beta-linsey and ELIAZAR inhibitor. If he continues to have anginal sounding symptoms then we may have to consider invasive coronary angiography as his last nuclear stress test few months ago was negative for inducible perfusion defect. Discussed lifestyle modification the patient including complete smoking cessation. Will reevaluate patient's clinical status in a.m. tomorrow. Rev iewed his echocardiogram and his LVEF is at 45 to 50% visually although echo pictures were suboptimal in quality.
--- NOTE | 2019-05-05 15:40 | PDOC PROGRESS REPORT ---
Subjective Progress Note for:: 05/05/19 Subjective:: No adverse events overnight. No new complaints. He said he still having some of the chest discomfort intermittently. He said that when he went to the community clinic after his last hospitalization, they did not continue his Coreg and lisinopril. He does not know why. Reason For Visit: CHEST PAIN Physical Exam Vital Signs: Temp Pulse Resp BP Pulse Ox 98.3 F 58 L 18 138/86 H 100 05/05/19 11:20 05/05/19 11:20 05/05/19 11:20 05/05/19 11:20 05/05/19 11:20 Intake & Output 05/04/19 05/05/19 05/06/19 06:59 06:59 06:59 Intake Total 500 Balance 500 Weight 83.9 kg General appearance: PRESENT: no acute distress, cooperative, disheveled Respiratory exam: PRESENT: clear to auscultation antonella, symmetrical, unlabored. ABSENT: accessory muscle use, chest wall tenderness, crackles, prolonged expiratory phas, rhonchi, tachypnea, wheezes Cardiovascular exam: PRESENT: RRR, +S1, +S2 Pulses: PRESENT: normal carotid pulses Vascular exam: PRESENT: normal capillary refill GI/Abdominal exam: PRESENT: normal bowel sounds, soft. ABSENT: distended, guarding, rebound, tenderness Extremities exam: ABSENT: clubbing, pedal edema Musculoskeletal exam: PRESENT: normal inspection. ABSENT: deformity Neurological exam: PRESENT: alert, awake, oriented to person, oriented to place, oriented to situation Psychiatric exam: PRESENT: appropriate affect, normal mood Skin exam: PRESENT: dry, warm Results Laboratory Results: 05/05/19 04:50 05/05/19 04:50 05/05/19 05/05/19 05/05/19 04:50 04:50 04:50 WBC 5.5 RBC 4.10 L Hgb 12.4 L Hct 36.8 L MCV 90 MCH 30.4 MCHC 33.8 RDW 13.6 Plt Count 128 L Seg Neutrophils % 45.9 Lymphocytes % 37.1 Monocytes % 13.2 H Eosinophils % 2.8 Basophils % 1.0 Absolute Neutrophils 2.5 Absolute Lymphocytes 2.0 Absolute Monocytes 0.7 Absolute Eosinophils 0.2 Absolute Basophils 0.1 Sodium 138.1 Potassium 4.1 Chloride 104 Carbon Dioxide 26 Anion Gap 8 BUN 15 Creatinine 0.67 Est GFR ( Amer) > 60 Est GFR (Non-Af Amer) > 60 Glucose 175 H Calcium 9.8 Magnesium 1.8 Total Bilirubin 0.5 AST 26 ALT 42 Alkaline Phosphatase 57 Total Protein 6.2 L Albumin 3.7 Triglycerides 105 Cholesterol 159.37 LDL Cholesterol Direct 100 VLDL Cholesterol 21.0 HDL Cholesterol 52 TSH 1.62 05/04/19 05/04/19 05/04/19 14:45 16:48 22:58 Creatine Kinase 78 CK-MB (CK-2) 0.55 Troponin I < 0.012 < 0.012 NT-Pro-B Natriuret Pep 231 H 05/04/19 05/05/19 05/05/19 22:58 04:50 04:50 Creatine Kinase 63 CK-MB (CK-2) 0.49 0.48 Troponin I 0.014 0.015 NT-Pro-B Natriuret Pep 05/05/19 05/05/19 11:30 11:30 Creatine Kinase 60 CK-MB (CK-2) 0.41 Troponin I < 0.012 NT-Pro-B Natriuret Pep Impressions: Chest/Abdomen CTA 05/04/19 00:00 IMPRESSION:No evidence of pulmonary embolus Mildly prominent mediastinal and hilar lymph nodes which are nonspecific. Chest X-Ray 05/04/19 14:36 IMPRESSION: NO ACUTE RADIOGRAPHIC FINDING IN THE CHEST. Assessment and Plan - Diagnosis (1) Cardiomyopathy Qualifiers: Cardiomyopathy type: unspecified Qualified Code(s): I42.9 - Cardiomyopathy, unspecified Is this a current diagnosis for this admission?: No Plan: Cardiology consulted. He is on Coreg and lisinopril. Long-acting nitrate was added at the recommendation of cardiology. Awaiting further recommendations. (2) Chest pain Qualifiers: Chest pain type: chest pain due to myocardial ischemia Ischemic chest pain type: unspecified angina pectoris type Qualified Code(s): I25.9 - Chronic ischemic heart disease, unspecified Is this a current diagnosis for this admission?: Yes Plan: Ruled out for acute [facility]. There is been some talk of a cardiac catheterization. (3) Diabetes Qualifiers: Diabetes mellitus type: type 2 Diabetes mellitus halfway insulin use: with halfway use Is this a current diagnosis for this admission?: Yes Plan: He needs improved control of his glucoses with his hemoglobin A1c of 10.4%. Continue diabetic diet and insulin regimen. (4) Hypertension Qualifiers: Hypertension type: essential hypertension Qualified Code(s): I10 - Essential (primary) hypertension Is this a current diagnosis for this admission?: Yes (5) Tobacco dependency Is this a current diagnosis for this admission?: Yes Plan: Continue medications as noted above. - Time Time Spent with patient: 15-24 minutes
[2019-05-05] MEDS ORDERED: NICOTINE 21 MG/24 HR PATCH.TD24 TD ONE (22:00)
[2019-05-05] MEDS: ATORVASTATIN CALCIUM 20 MG TABLET PO SCH (22:16)
[2019-05-06] MEDS: GLIPIZIDE XL 2.5 MG TAB.ER.24 PO SCH (08:16)
[2019-05-06] MEDS: INSULIN REG, HUMAN 100 UNIT/ML 3 ML VIAL (PYX) SUBCUT SCH ×4 (08:17→22:10)
[2019-05-06] MEDS: CARVEDILOL 3.125 MG TABLET PO SCH ×2 (09:56→22:08)
[2019-05-06] MEDS: ISOSORBIDE MONONITRATE 30 MG TAB.ER.24H PO SCH (09:56)
[2019-05-06] MEDS: LISINOPRIL 5 MG TABLET PO SCH (09:56)
[2019-05-06] MEDS: FAMOTIDINE 20 MG TABLET PO SCH ×2 (09:56→22:08)
[2019-05-06] MEDS: ASPIRIN 81 MG TABLET, ENT COATED PO SCH (09:56)
[2019-05-06] MEDS: ENOXAPARIN SODIUM INJ 40 MG/0.4 ML DISP.SYRIN SUBCUT SCH (09:57)
[2019-05-06] MEDS: NICOTINE 21 MG/24 HR PATCH.TD24 TD SCH (09:57)
--- NOTE | 2019-05-06 10:15 | PDOC PROGRESS REPORT ---
Subjective Progress Note for:: 05/06/19 Reason For Visit: CHEST PAIN Patient seen at bedside and still has intermittent episodes of chest pressure. He was started on long-acting nitrate yesterday. Denies any palpitations or dizziness or acute shortness of breath at this time. Physical Exam Vital Signs: Temp Pulse Resp BP Pulse Ox 98.1 F 65 14 142/91 H 99 05/06/19 03:31 05/06/19 07:37 05/06/19 07:37 05/06/19 07:37 05/06/19 07:37 Intake & Output 05/05/19 05/06/19 05/07/19 06:59 06:59 06:59 Intake Total 500 1340 Balance 500 1340 Weight 83.9 kg 84.7 kg General appearance: PRESENT: no acute distress Head exam: PRESENT: atraumatic, normocephalic Mouth exam: PRESENT: moist, neck supple Neck exam: PRESENT: full ROM Respiratory exam: PRESENT: clear to auscultation antonella, unlabored Cardiovascular exam: PRESENT: +S1, +S2 Pulses: PRESENT: normal radial pulses, normal dorsalis pedis pul Vascular exam: PRESENT: normal capillary refill GI/Abdominal exam: PRESENT: normal bowel sounds, soft Extremities exam: PRESENT: full ROM Musculoskeletal exam: PRESENT: ambulatory, full ROM Neurological exam: PRESENT: alert, awake, oriented to time, oriented to situation, CN II-XII grossly intact Results Laboratory Results: 05/05/19 04:50 05/05/19 04:50 05/04/19 05/04/19 05/04/19 14:45 16:48 22:58 Creatine Kinase 78 CK-MB (CK-2) 0.55 Troponin I < 0.012 < 0.012 NT-Pro-B Natriuret Pep 231 H 05/04/19 05/05/19 05/05/19 22:58 04:50 04:50 Creatine Kinase 63 CK-MB (CK-2) 0.49 0.48 Troponin I 0.014 0.015 NT-Pro-B Natriuret Pep 05/05/19 05/05/19 11:30 11:30 Creatine Kinase 60 CK-MB (CK-2) 0.41 Troponin I < 0.012 NT-Pro-B Natriuret Pep Impressions: Chest/Abdomen CTA 05/04/19 00:00 IMPRESSION:No evidence of pulmonary embolus Mildly prominent mediastinal and hilar lymph nodes which are nonspecific. Chest X-Ray 05/04/19 14:36 IMPRESSION: NO ACUTE RADIOGRAPHIC FINDING IN THE CHEST. 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 Patient with multiple risk factors for atherosclerotic cardiovascular disease with nuclear stress test few months ago negative for inducible perfusion defect but with continued intermittent episodes of chest pain/pressure related to exertion and active cigarette smoking. Echo this admission shows LVEF around 45 to 50%. Will recommend interventional cardiology consult for consideration of cardiac cat heterization to rule out obstructive coronary artery disease. Continue patient on aspirin, statin, beta-linsey, ELIAZAR inhibitor and long-acting nitrate and uptitrate antihypertensive therapy for optimization of blood pressure control. Will follow closely with you. - Time Time with patient: 15-25 minutes
--- NOTE | 2019-05-06 14:40 | PDOC PROGRESS REPORT ---
Subjective Progress Note for:: 05/06/19 Subjective:: No adverse events overnight. No new complaints. He said he still having some shortness of breath intermittently. He was up walking in the hallway for a little bit today said he felt like he was still having trouble taking a deep breath. He said it is not constant, but he feels like he just has some tightness intermittently. Reason For Visit: CHEST PAIN Physical Exam Vital Signs: Temp Pulse Resp BP Pulse Ox 98.1 F 65 14 142/91 H 99 05/06/19 03:31 05/06/19 07:37 05/06/19 07:37 05/06/19 07:37 05/06/19 07:37 Intake & Output 05/05/19 05/06/19 05/07/19 06:59 06:59 06:59 Intake Total 500 1340 Balance 500 1340 Weight 83.9 kg 84.7 kg General appearance: PRESENT: no acute distress, cooperative, disheveled Respiratory exam: PRESENT: clear to auscultation antonella, symmetrical, unlabored. ABSENT: accessory muscle use, chest wall tenderness, crackles, prolonged expiratory phas, rhonchi, tachypnea, wheezes Cardiovascular exam: PRESENT: RRR, +S1, +S2 Pulses: PRESENT: normal carotid pulses Vascular exam: PRESENT: normal capillary refill GI/Abdominal exam: PRESENT: normal bowel sounds, soft. ABSENT: distended, guarding, rebound, tenderness Extremities exam: ABSENT: clubbing, pedal edema Musculoskeletal exam: PRESENT: normal inspection. ABSENT: deformity Neurological exam: PRESENT: alert, awake, oriented to person, oriented to place, oriented to situation Psychiatric exam: PRESENT: appropriate affect, normal mood Skin exam: PRESENT: dry, warm Results Laboratory Results: 05/05/19 04:50 05/05/19 04:50 05/04/19 05/04/19 05/04/19 14:45 16:48 22:58 Creatine Kinase 78 CK-MB (CK-2) 0.55 Troponin I < 0.012 < 0.012 NT-Pro-B Natriuret Pep 231 H 05/04/19 05/05/19 05/05/19 22:58 04:50 04:50 Creatine Kinase 63 CK-MB (CK-2) 0.49 0.48 Troponin I 0.014 0.015 NT-Pro-B Natriuret Pep 05/05/19 05/05/19 11:30 11:30 Creatine Kinase 60 CK-MB (CK-2) 0.41 Troponin I < 0.012 NT-Pro-B Natriuret Pep Impressions: Chest/Abdomen CTA 05/04/19 00:00 IMPRESSION:No evidence of pulmonary embolus Mildly prominent mediastinal and hilar lymph nodes which are nonspecific. Chest X-Ray 05/04/19 14:36 IMPRESSION: NO ACUTE RADIOGRAPHIC FINDING IN THE CHEST. Assessment and Plan - Diagnosis (1) Cardiomyopathy Qualifiers: Cardiomyopathy type: unspecified Qualified Code(s): I42.9 - Cardiomyopathy, unspecified Is this a current diagnosis for this admission?: No Plan: Cardiology consulted. He is on Coreg and lisinopril. Long-acting nitrate was added at the recommendation of cardiology. Cardiology has recommended a cardiac catheterization and that consultation has been placed.. (2) Chest pain Qualifiers: Chest pain type: chest pain due to myocardial ischemia Ischemic chest pain type: unspecified angina pectoris type Qualified Code(s): I25.9 - Chronic ischemic heart disease, unspecified Is this a current diagnosis for this admission?: Yes Plan: NE ruled out. Cardiology recommended a heart cath as noted above. 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 Continue diabetic diet and insulin regimen. (4) Hypertension Qualifiers: Hypertension type: essential hypertension Qualified Code(s): I10 - Essential (primary) hypertension Is this a current diagnosis for this admission?: Yes Plan: 05/04/2019-patient has history of hypertension is on lisinopril and Coreg at home. Her pressure is 148/92. Coreg and lisinopril resumed during this hospital stay. (5) Tobacco dependency Is this a current diagnosis for this admission?: Yes Plan: Continue medications as noted above. - Time Time Spent with patient: 15-24 minutes
[2019-05-06] MEDS: CYCLOBENZAPRINE HCL 10 MG TABLET PO PRN ×2 (16:55→22:11)
[2019-05-06] MEDS: ATORVASTATIN CALCIUM 20 MG TABLET PO SCH (22:08)
[2019-05-07] MEDS ORDERED: VERAPAMIL HCL 5 MG, LIDOCAINE HCL/PF 2 ML, NORMAL SALINE 6 ML in SYRINGE, DISPOSABLE, 1... IV PRN (05:00)
[2019-05-07] MEDS: INSULIN REG, HUMAN 100 UNIT/ML 3 ML VIAL (PYX) SUBCUT SCH ×2 (08:21→17:00)
--- NOTE | 2019-05-07 08:42 | PDOC PROGRESS REPORT ---
Subjective Progress Note for:: 05/07/19 Reason For Visit: CHEST PAIN Patient seen at bedside and denies any overnight chest pain. Patient due for cardiac cath today. Physical Exam Vital Signs: Temp Pulse Resp BP Pulse Ox 97.5 F 58 L 20 147/103 H 97 05/07/19 03:23 05/07/19 08:01 05/07/19 03:23 05/07/19 08:01 05/07/19 08:01 Intake & Output 05/06/19 05/07/19 05/08/19 06:59 06:59 06:59 Intake Total 1340 595 Balance 1340 595 Weight 84.7 kg 85.5 kg General appearance: PRESENT: no acute distress Head exam: PRESENT: atraumatic, normocephalic Mouth exam: PRESENT: moist, neck supple Neck exam: PRESENT: full ROM Respiratory exam: PRESENT: clear to auscultation antonella, unlabored Cardiovascular exam: PRESENT: +S1, +S2 Pulses: PRESENT: normal radial pulses, normal dorsalis pedis pul GI/Abdominal exam: PRESENT: normal bowel sounds, soft Neurological exam: PRESENT: alert, awake, oriented to time, oriented to situation, CN II-XII grossly intact Results Laboratory Results: 05/05/19 04:50 05/05/19 04:50 05/04/19 05/04/19 05/04/19 14:45 16:48 22:58 Creatine Kinase 78 CK-MB (CK-2) 0.55 Troponin I < 0.012 < 0.012 NT-Pro-B Natriuret Pep 231 H 05/04/19 05/05/19 05/05/19 22:58 04:50 04:50 Creatine Kinase 63 CK-MB (CK-2) 0.49 0.48 Troponin I 0.014 0.015 NT-Pro-B Natriuret Pep 05/05/19 05/05/19 05/06/19 11:30 11:30 17:34 Creatine Kinase 60 CK-MB (CK-2) 0.41 Troponin I < 0.012 < 0.012 NT-Pro-B Natriuret Pep Impressions: Chest/Abdomen CTA 05/04/19 00:00 IMPRESSION:No evidence of pulmonary embolus Mildly prominent mediastinal and hilar lymph nodes which are nonspecific. Chest X-Ray 05/04/19 14:36 IMPRESSION: NO ACUTE RADIOGRAPHIC FINDING IN THE CHEST. Assessment & Plan - Diagnosis (1) Chest pain Qualifiers: Chest pain type: chest pain due to myocardial ischemia Ischemic chest pain type: unspecified angina pectoris type Qualified Code(s): I25.9 - Chronic ischemic heart disease, unspecified Is this a current diagnosis for this admission?: Yes (2) Systolic heart failure Qualifiers: Heart failure chronicity: unspecified Qualified Code(s): I50.20 - Unspecified systolic (congestive) heart failure Is this a current diagnosis for this admission?: Yes (3) Diabetes Qualifiers: Diabetes mellitus type: type 2 Diabetes mellitus terminologist insulin use: with fci use Is this a current diagnosis for this admission?: Yes (4) Hypertension Qualifiers: Hypertension type: essential hypertension Qualified Code(s): I10 - Essential (primary) hypertension Is this a current diagnosis for this admission?: Yes (5) Tobacco dependency Is this a current diagnosis for this admission?: Yes - Notes Notes: Patient with multiple risk factors for atherosclerotic cardiovascular disease with mild LV systolic dysfunction admitted with anginal symptoms and due for cardiac catheterization today to rule out obstructive coronary artery disease. Continue patient on guideline directed therapy with aspirin, statin, beta- linsey, long-acting nitrate and ELIAZAR inhibitor. Will reevaluate medical therapy after reviewing cardiac catheter results. - Time Time with patient: 15-25 minutes
[2019-05-07] MEDS ORDERED: HEPARIN SODIUM,PORCINE/NS/PF 2,000 UNIT/1,000 ML RTUINJ IV ONE (11:04)
[2019-05-07] MEDS ORDERED: LIDOCAINE 1% INJ-PF (10 MG/ML) 30 ML SDV ONE (11:04)
[2019-05-07] MEDS ORDERED: FENTANYL CITRATE INJ/PF 100 MCG/2 ML AMPUL ONE (11:07)
[2019-05-07] MEDS ORDERED: HEPARIN SOD (PORCINE) 1,000 UNIT/ML 10 ML VIAL ONE (11:07)
[2019-05-07] MEDS ORDERED: MIDAZOLAM HCL INJ 5 MG/1 ML VIAL ONE (11:07)
[2019-05-07] MEDS ORDERED: DIPHENHYDRAMINE HCL 50 MG/ML VIAL ONE (11:11)
--- NOTE | 2019-05-07 12:11 | Operative Report ---
Operative Report DATE OF SURGERY: 05/07/19 PREOPERATIVE DIAGNOSIS: Cardiomyopathy recurrent chest pain POSTOPERATIVE DIAGNOSIS: Coronary ectasia, cardiomyopathy OPERATION: Left heart catheterization, coronary angiography, left ventriculography SURGEON: MARGO MONROE ANESTHESIA: Moderate Sedation PROCEDURE: After informed consent was obtained the patient was brought to the cardiac catheterization lab and the right wrist was prepared in usual sterile and draped manner. Hemodynamic access was gained using micropuncture technique and the patient was anticoagulated with heparin. An intra-arterial cocktail of verapamil and lidocaine was administered. Selective coronary angiography was performed with a Randolph catheter. This was exchanged with pigtail catheter and left ventriculography was performed in standard LORD projection. The patient left the Cardiac Catheterization Lab in stable condition, with intact distal pulses and no chest pain or other complications from the procedure. Conscious sedation was initiated, monitored, and maintained during the procedure with the start time of 1128 and a completion time of 1156 for a total procedure time of 28 minutes. A total of 2 milligrams of Versed and 75 milligrams and fentanyl were used for conscious sedation. HEMODYNAMIC DATA: [aortic pressure to beginning the case is 129/73 post ventriculography LV pressure is 141/7 aortic pressure on pullback is 140/75 there is no gradient across the aortic valve ] CORONARY ANATOMY: [] ANGIOGRAPHY: [] VENTRICULOGRAPHY: Ventriculography is performed in the LORD projection and demonstrates [mildly reduced left ventricular function with global hypokinesis estimated ejection fraction visually is in the 40% range] . CORONARY ANGIOGRAPHY: [] LEFT MAIN: [Normal to mildly aneurysmal this aneurysmal segment extends into the proximal portion of the LAD] LEFT ANTERIOR DESCENDING: [The proximal LAD is aneurysmal there are minor luminal irregularities but no critical or focal obstructive lesions are seen the LAD is transapical at this time] CIRCUMFLEX CORONARY: [there is a large ramus intermedius or first obtuse marginal branch which also appears normal this does reach the apex in the anterolateral distribution the AV groove circumflex has a 30 to 40% stenosis that does not appear to be flow-limiting] RIGHT CORONARY ARTERY: [Right coronary artery is a large dominant vessel morelos pplying the PDA and posterolateral branches there are luminal irregularities without critical or focal obstructive lesions] IMPRESSION: [ 1. Nonischemic dilated cardiomyopathy 2. Noncritical obstructive coronary disease 3. 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 No evidence of significant valvular heart disease]
[2019-05-07] MEDS: FAMOTIDINE 20 MG TABLET PO SCH (13:31)
[2019-05-07] MEDS: LISINOPRIL 5 MG TABLET PO SCH (13:31)
[2019-05-07] MEDS: NICOTINE 21 MG/24 HR PATCH.TD24 TD SCH (13:31)
[2019-05-07] MEDS: ISOSORBIDE MONONITRATE 30 MG TAB.ER.24H PO SCH (13:31)
[2019-05-07] MEDS: CARVEDILOL 3.125 MG TABLET PO SCH (13:31)
[2019-05-07] MEDS: ASPIRIN 81 MG TABLET, ENT COATED PO SCH (13:31)
[2019-05-07] MEDS: GLIPIZIDE XL 2.5 MG TAB.ER.24 PO SCH (13:32)
[2019-05-07 17:19] VITALS: BP 126/80
--- NOTE | 2019-05-08 21:33 | PDOC DISCHARGE SUMMARY ---
General - Admit/Disc Date/PCP Admission Date/Primary Care Provider: 05/04/19 18:12 [facility] Discharge Date: 05/07/19 - Discharge Diagnosis (1) Chest pain Is this a current diagnosis for this admission?: Yes Summary: Patient with multiple risk factors for atherosclerotic cardiovascular disease with mild LV systolic dysfunction admitted with anginal symptoms and due for cardiac catheterization to rule out obstructive coronary artery disease. Cardiac cath revealed 1. Nonischemic dilated cardiomyopathy, 2. Noncritical obstructive coronary disease, 3. 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 No evidence of significant valvular heart disease Cardiology was consulted; discussed with Dr. Lennon post-cath and prior to discharge. Patient is approved for discharge to home on current medication regiment of lisinopril/hctz, carvedilol, isosorbide, aspirin, and statin therapy. The patient is discharged to home in stable condition. He is advised to follow up with his primary care provider within 1 week. He is instructed to keep his appointment with his established crate builder as scheduled on June 06. He is encouraged to stop smoking. He is instructed to continue his medications unchanged. He is instructed to return to the emergency department as needed for concerning symptoms. (2) Diabetes Is this a current diagnosis for this admission?: Yes Summary: A1C 10.4% Patient was advised of the importance of lifestyle modifications with medication and dietary compliance. He is discharged on his home regiment. Encouraged to follow up with primary care provider within 1 week for continued monitoring and medication adjustments. (3) Hypertension Is this a current diagnosis for this admission?: Yes Summary: Patient reports history of hypertension. His home medication regiment of lisinopril/hctz, imdur, and carvedilol are continued. (4) Systolic heart failure Is this a current diagnosis for this admission?: Yes Summary: Stable and without exacerbation at this time. Cardiology was consulted; recommend patient continue medication regiment as above. (5) Tobacco dependency Is this a current diagnosis for this admission?: Yes Summary: Smoking cessation strongly encouraged; nicotine replacement therapies provided. Prescription for Nicoderm patches provided at discharge. - Additional Information Resuscitation Status: Full Code Discharge Diet: Cardiac, Diabetic Discharge Activity: Activity As Tolerated, Balance Activity w/Rest, No Driving - x1 week, Slowly Increase Activity, Other - Do not lift >1 lb w/ Rt hand x 3 days Prescriptions: Famotidine [Pepcid 20 mg Tablet] 20 mg PO Q12 #60 tablet Isosorbide Mononitrate [Imdur 30 mg Tablet.er] 30 mg PO DAILY #30 tab.er.24h Nicotine [Nicoderm 21 mg/24 Hr Transderm Patch] 1 each TD DAILY #30 patch.td24 Home Medications: Atorvastatin Calcium [Lipitor 20 mg Tablet] 20 mg PO QHS #30 tablet 01/31/19 Insulin Glargine,Hum.rec.anlog [Lantus Insulin 100 Unit/1 ml 10 ml] 20 unit SUBCUT DAILY 05/05/19 Lisinopril/Hydrochlorothiazide [Lisinopril-Hctz 20-25 mg Tab] 1 each PO DAILY 05/05/19 Metformin HCl 1,000 mg PO BID 05/05/19 Acetaminophen [Tylenol 325 mg Tablet] 650 mg PO Q4HP PRN tablet 05/07/19 Aspirin [Ecotrin 81 mg EC Tablet] 81 mg PO DAILY tabec 05/07/19 Carvedilol [Coreg 3.125 mg Tablet] 3.125 mg PO Q12 tablet 05/07/19 Cyclobenzaprine HCl [Flexeril 10 mg Tablet] 5 mg PO TIDP PRN tablet 05/07/19 Famotidine [Pepcid 20 mg Tablet] 20 mg PO Q12 #60 tablet 05/07/19 Glipizide [Glucotrol Xl 2.5 mg Tab.er] 2.5 mg PO ACBRKFST tab.er.24 05/07/19 Isosorbide Mononitrate [Imdur 30 mg Tablet.er] 30 mg PO DAILY #30 tab.er.24h 05/07/19 Nicotine [Nicoderm 21 mg/24 Hr Transderm Patch] 1 each TD DAILY #30 patch.td24 05/07/19 History of Present Illness History of Present Illness: Per H&P by Dr. Talley: TOBY CIFUENTES JR is a 48 year old male with history of diabetes mellitus, hypertension, hypercholesterolemia, cardiomyopathy EF of around 35 to 40% came to the emergency room with complaints of left-sided chest pains. Chest pain started this morning if he woke up with chest pains pain scal e is 3/10 squeezing pain localized not associated with nausea not associated dizzy spells not associated with sweating but complaining of shortness of breath with the chest pains. He decided to come to the emergency room for further evaluation. Denies any headaches dizzy spells. agreed To stay in the hospital. Physical Exam Vital Signs: Temp Pulse Resp BP Pulse Ox 97.7 F 57 L 18 124/80 98 05/07/19 15:08 05/07/19 15:08 05/07/19 15:08 05/07/19 15:08 05/07/19 15:08 Intake & Output 05/06/19 05/07/19 05/08/19 06:59 06:59 06:59 Intake Total 1340 595 Balance 1340 595 Weight 84.7 kg 85.5 kg General appearance: PRESENT: no acute distress, cooperative, well-developed, well-nourished Head exam: PRESENT: atraumatic, normocephalic Eye exam: PRESENT: conjunctiva pink, EOMI, PERRLA. ABSENT: scleral icterus Ear exam: PRESENT: normal external ear exam Mouth exam: PRESENT: moist, tongue midline Neck exam: ABSENT: carotid bruit, JVD, lymphadenopathy, thyromegaly Respiratory exam: PRESENT: clear to auscultation antonella. ABSENT: rales, rhonchi, wheezes Cardiovascular exam: PRESENT: RRR, +S1, +S2. ABSENT: diastolic murmur, rubs, systolic murmur Pulses: PRESENT: normal dorsalis pedis pul Vascular exam: PRESENT: normal capillary refill GI/Abdominal exam: PRESENT: normal bowel sounds, soft. ABSENT: distended, guarding, mass, organolmegaly, rebound, tenderness Rectal exam: PRESENT: deferred Extremities exam: PRESENT: full ROM. ABSENT: calf tenderness, clubbing, pedal edema Neurological exam: PRESENT: alert, awake, oriented to person, oriented to place, oriented to time, oriented to situation, CN II-XII grossly intact. ABSENT: motor sensory deficit Psychiatric exam: PRESENT: appropriate affect, normal mood. ABSENT: homicidal ideation, suicidal ideation Skin exam: PRESENT: dry, intact, warm. ABSENT: cyanosis, rash Results Laboratory Results: 05/05/19 04:50 05/05/19 04:50 05/04/19 05/04/19 05/04/19 14:45 16:48 22:58 Creatine Kinase 78 CK-MB (CK-2) 0.55 Troponin I < 0.012 < 0.012 NT-Pro-B Natriuret Pep 231 H 05/04/19 05/05/19 05/05/19 22:58 04:50 04:50 Creatine Kinase 63 CK-MB (CK-2) 0.49 0.48 Troponin I 0.014 0.015 NT-Pro-B Natriuret Pep 05/05/19 05/05/19 05/06/19 11:30 11:30 17:34 Creatine Kinase 60 CK-MB (CK-2) 0.41 Troponin I < 0.012 < 0.012 NT-Pro-B Natriuret Pep Impressions: Chest/Abdomen CTA 05/04/19 00:00 IMPRESSION:No evidence of pulmonary embolus Mildly prominent mediastinal and hilar lymph nodes which are nonspecific. Chest X-Ray 05/04/19 14:36 IMPRESSION: NO ACUTE RADIOGRAPHIC FINDING IN THE CHEST. Qualifiers - * PATIENT BEING DISCHARGED WITH ANY OF THE FOLLOWING DIAGNOSIS: No Acute Heart Failure - Is this a Heart Failure Patient?: No LVEF < 40%?: Yes-if yes answer questions a through e a) Discharged on ACEI?: Yes b) Discharges on ARB?: No-document contraindications - on ACEI c) Discharged on ARNI?: No-Document Contraindications Reason(s) not discharged on ARNI: Other - Defered to primary crate builder d) Discharged on evidence-based Beta linsey(carvedilol, sustained release metoprolol succinate, or bisoprolol)?: Yes e) For LVEF <35%, discharged on Aldosterone antagonist?: N/A (LVEF > or = 35%) Plan Discharge Plan: Follow-up with your primary care provider within 1 week. Follow up with your crate builder as scheduled on June 06. Take medications as prescribed. STOP smoking. Return to the emergency department as needed for any concerning symptoms. Time Spent: Greater than 30 Minutes
== END 2019-05-07 17:32 | disposition home or self-care (01) ==
LOC: ER 13:38 → EH 18:12 → INTOOBSV 18:12 → UNDOADMIN 18:12 → 3S 21:10
PROVIDERS: ADMIT Internal Medicine; ATTEND Internal Medicine
PROC: HZ31ZZZ Individual Counseling for Substance Abuse Treatment, Behavioral (ICD-10-PCS; principal; 2019-05-04)
PROC: 4A023N7 Measurement of Cardiac Sampling and Pressure, Left Heart, Percutaneous Approach (ICD-10-PCS; 2019-05-07)
DX: R07.89 Other chest pain (principal); I42.0 Dilated cardiomyopathy; I25.119 Atherosclerotic heart disease of native coronary artery with unspecified angina pectoris; E11.9 Type 2 diabetes mellitus without complications; I11.0 Hypertensive heart disease with heart failure; I50.20 Unspecified systolic (congestive) heart failure; E78.00 Pure hypercholesterolemia, unspecified; F17.210 Nicotine dependence, cigarettes, uncomplicated; M54.2 Cervicalgia; R53.1 Weakness; R14.2 Eructation; Z79.899 Other long term (current) drug therapy; Z82.49 Family history of ischemic heart disease and other diseases of the circulatory system; Z79.4 Long term (current) use of insulin; Z82.69 Family history of other diseases of the musculoskeletal system and connective tissue; Z79.82 Long term (current) use of aspirin
CPT/HCPCS: 93005 ×2; 99285; 36415 ×3; 82553 ×2; 82962 ×4; 82550 ×2; 83690; 83735; 84443; 85025 ×2; 80053 ×2; 81001; 84484 ×3; 80307; 83036; 80061; 83880; 93306; 93458; 71046; 71275; 93010; 99407; G0378 ×5; J1200; J3010; J3490 ×4; J1644 ×2; J1650 ×2; J2250; J1815 ×3

== ENCOUNTER 2019-06-05 02:44 | Emergency (ER) | payer SELFPAY ==
--- NOTE | 2019-06-05 04:11 | RADIOLOGY REPORT (SQ) ---
Right foot three view on 06/05/2019 at 3:21 AM CLINICAL INDICATION: Great toe pain, nail infection COMPARISON: None FINDINGS: There is no radiopaque foreign body. Very small plantar calcaneal spur is noted. There are no fractures. Visualized joints are well aligned. No definite plain radiographic evidence of osteomyelitis is noted. No other bony abnormality is noted. IMPRESSION: No acute abnormality.
[2019-06-05] MEDS ORDERED: OXYCODONE-ACETAMINOPHEN 5-325 MG TABLET PO ONE (07:07)
[2019-06-05 07:55] LABS: ALANINE AMINOTRANSFERASE 26 U/L (21-72); ALBUMIN 4.3 g/dL (3.5-5.0); ALKALINE PHOSPHATASE 59 U/L (38-126); ANION GAP 9 (5-19); ASPARTATE AMINO TRANSFERASE 20 U/L (17-59); BILIRUBIN,DIRECT 0.3 mg/dL (0.0-0.4); BILIRUBIN,TOTAL 0.4 mg/dL (0.2-1.3); BLOOD UREA NITROGEN 21 mg/dL (7-20); CALCIUM 10.2 mg/dL (8.4-10.2); CARBON DIOXIDE 26 mmol/L (22-30); CHLORIDE 101 mmol/L (98-107); GLUCOSE 212 mg/dL (75-110); POTASSIUM 4.5 mmol/L (3.6-5.0); SODIUM 136.2 mmol/L (137-145); TOTAL PROTEIN 7.3 g/dL (6.3-8.2)
--- NOTE | 2019-06-05 08:08 | ER Document Report ---
Entered by TITI AVILA SCRIBE 06/05/19 0707 Acting as scribe for:MELINDA COLE MD ED Extremity Problem, Lower - General Chief Complaint: Toe Injury Stated Complaint: RIGHT TOE PAIN Time Seen by Provider: 06/05/19 06:58 Primary Care Provider: TONY SCHAFER DPM [ACTIVE STAFF] - Follow up as needed [facility] [Primary Care Provider] - Follow up as needed GLADYS MINA DPM [ACTIVE STAFF] - Follow up as needed CJ WINSTON DPM [ACTIVE STAFF] - Follow up as needed Notes: Patient is a 48-year-old male with type 2 diabetes presenting to the emergency department complaining of right big toe pain. Patient states that his pain is chronic, it has progressed recently however. Patient states that he has pain under his nail. Patient states "a while back it started leaking fluid when I hit it". Patient denies having any fevers with this pain. TRAVEL OUTSIDE OF THE [place] IN LAST 30 DAYS: No - Related Data Allergies/Adverse Reactions: No Known Allergies Allergy (Verified 05/04/19 13:39) Past Medical History - General Information source: Patient - Social History Smoking Status: Former Smoker - Quit 3 days ago Cigarette use (# per day): Yes Chew tobacco use (# tins/day): No Frequency of alcohol use: None Drug Abuse: None Family History: CAD, DM, Hyperlipidemia, Hypertension Patient has suicidal ideation: No Patient has homicidal ideation: No - Past Medical History Cardiac Medical History: Reports: Hx Hypercholesterolemia, Hx Hypertension Endocrine Medical History: Reports: Hx Diabetes Mellitus Type 2 Past Surgical History: Reports: Hx Orthopedic Surgery - Hip - Immunizations Hx Diphtheria, Pertussis, Tetanus Vaccination: Yes - 2009 Review of Systems - Review of Systems Constitutional: No symptoms reported EENT: No symptoms reported Cardiovascular: No symptoms reported Respiratory: No symptoms reported Gastrointestinal: No symptoms reported Genitourinary: No symptoms reported Male Genitourinary: No symptoms reported Musculoskeletal: See HPI, Other - Left big toe pain Skin: No symptoms reported Hematologic/Lymphatic: No symptoms reported Neurological/Psychological: No symptoms reported -: Yes All other systems reviewed and negative Physical Exam - Vital signs Vitals: Temp Pulse Resp BP Pulse Ox 98 F 71 16 131/84 H 97 06/05/19 02:49 06/05/19 02:49 06/05/19 02:49 06/05/19 02:49 06/05/19 02:49 - Notes Notes: PHYSICAL EXAMINATION: GENERAL: Well-appearing, well-nourished and in no acute distress. HEAD: Atraumatic, normocephalic. EYES: Pupils equal round and reactive to light, extraocular movements intact, sclera anicteric, conjunctiva are normal. ENT: nares patent, oropharynx clear without exudates. Moist mucous membranes. NECK: Normal range of motion, supple without lymphadenopathy LUNGS: Breath sounds clear to auscultation bilaterally and equal. No wheezes rales or rhonchi. HEART: Regular rate and rhythm without murmurs ABDOMEN: Soft, nontender, normoactive bowel sounds. No guarding, no rebound. No masses appreciated. EXTREMITIES: Normal range of motion, no pitting or edema. Right 1st toe--right first toe does not have any swelling at the MCP or IP joint or tenderness. The nail is quite thickened. The distal toe does seem to be a little swollen, no fluctuance is detected. The toe was pulled away from the nail along the edges and the and to see if there might be infection developing, but none was found. The distal toe is a little tender to palpate and the patient reports a throbbing sensation under the nail. NEUROLOGICAL: Cranial nerves grossly intact. Normal speech, normal gait. Normal sensory, motor, and reflex exams. PSYCH: Normal mood, normal affect. SKIN: Warm, Dry, normal turgor, no rashes or lesions noted. Course - Vital Signs Vital signs: Temp Pulse Resp BP Pulse Ox 97.5 F 61 16 134/90 H 99 06/05/19 07:58 06/05/19 07:58 06/05/19 07:58 06/05/19 07:58 06/05/19 07:58 - Laboratory Result Diagrams: 06/05/19 09:06 06/05/19 07:23 Laboratory results interpreted by me: 06/05/19 06/05/19 07:23 09:06 RBC 4.16 L Hgb 12.5 L Hct 36.7 L Monocytes % 14.5 H Sodium 136.2 L BUN 21 H Glucose 212 H - Diagnostic Test Radiology reviewed: Reports reviewed - Right toe x-ray does not show acute ab normality. Discharge - Discharge Clinical Impression: Toe pain, right Diabetes Qualifiers: Diabetes mellitus type: type 2 Diabetes mellitus rodent exterminator insulin use: without rodent exterminator use Diabetes mellitus complication status: without complication Qualified Code(s): E11.9 - Type 2 diabetes mellitus without complications Condition: Stable Disposition: HOME, SELF-CARE Additional Instructions: Your examination suggest you may be developing an infection in your toe under the thickened nail. At this time it does not appear that the nail needs to be removed for treatment. Take the antibiotics as prescribed. Take ibuprofen 600 mg every 8 hours for pain control. Take the pain medication as prescribed for the next 1 to 2 days if needed. Try to limit walking on that foot for the next several days. Follow-up with a local pharmaceutical laboratory technician in the next 7 to 10 days to evaluate your toe and a thickened toenail. RETURN TO THE EMERGENCY ROOM IF ANY NEW OR WORSENING SYMPTOMS. Prescriptions: Doxycycline Hyclate 100 mg PO BID #14 tablet. Oxycodone HCl/Acetaminophen [Percocet 5-325 mg Tablet] 1 tab PO ASDIR PRN #10 tablet PRN Reason: Referrals: [facility] [Primary [facility] Provider] - Follow up as needed TONY SCHAFER DPM [ACTIVE STAFF] - Follow up as needed GLADYS MINA DPM [ACTIVE STAFF] - Follow up as needed CJ WINSTON DPM [ACTIVE STAFF] - Follow up as needed Scribe Attestation: 06/05/19 08:15 I personally performed the services described in the documentation, reviewed and edited the documentation which was dictated to the scribe in my presence, and it accurately records my words and actions. I personally performed the services described in the documentation, reviewed and edited the documentation which was dictated to the scribe in my presence, and it accurately records my words and actions.
[2019-06-05 09:16] LABS: ABSOLUTE BASOPHILS # (AUTO) 0.1 10^3/uL (0.0-0.2); ABSOLUTE EOSINOPHILS # (AUTO) 0.2 10^3/uL (0.0-0.6); ABSOLUTE LYMPHOCYTES (AUTO) 1.8 10^3/uL (0.5-4.7); ABSOLUTE MONOCYTES (AUTO) 0.9 10^3/uL (0.1-1.4); ABSOLUTE NEUT (AUTO) 3.5 10^3/uL (1.7-8.2); BASOPHILS % (AUTO) 1.2 % (0-2); EOSINOPHILS % (AUTO) 3.2 % (0-6); HEMATOCRIT 36.7 % (37.9-51.0); HEMOGLOBIN 12.5 g/dL (13.5-17.0); LYMPHOCYTES % (AUTO) 27.7 % (13-45); MEAN CORPUSCULAR HEMOGLOBIN 30.1 pg (27.0-33.4); MEAN CORPUSCULAR HGB CONC 34.2 g/dL (32.0-36.0); MEAN CORPUSCULAR VOLUME 88 fl (80-97); MONOCYTES % (AUTO) 14.5 % (3-13); RED BLOOD COUNT 4.16 10^6/uL (4.35-5.55); RED CELL DISTRIBUTION WIDTH 13.3 % (11.5-14.0); SEGMENTED NEUTROPHILS % (AUTO) 53.4 % (42-78); TOTAL CELLS COUNTED % (AUTO) 100 %; WHITE BLOOD COUNT 6.5 10^3/uL (4.0-10.5)
[2019-06-05 09:31] LABS: PLATELET COUNT 190 10^3/uL (150-450)
[2019-06-05 10:04] VITALS: BP 118/78
== END 2019-06-05 10:04 | disposition home or self-care (01) ==
LOC: ER 02:44
DX: M79.674 Pain in right toe(s) (principal); G89.29 Other chronic pain; E11.9 Type 2 diabetes mellitus without complications; E78.00 Pure hypercholesterolemia, unspecified; I10 Essential (primary) hypertension
CPT/HCPCS: 36415; 80053; 85025; 99283

== ENCOUNTER 2020-11-20 15:10 | Emergency (ER) | payer SELFPAY ==
--- NOTE | 2020-11-20 17:21 | ER Document Report ---
ED Medical Screen (RME) - General Stated Complaint: CHEST PAIN, SHORTNESS OF BREATH Time Seen by Provider: 11/20/20 17:12 Primary Care Provider: ZULY NEVAREZ [Primary Care Provider] - Follow up as needed Notes: Patient is a 50-year-old male presents to the emergency department with shortness of breath and chest pain. Patient reports that he started to have his chest pain this morning. Patient states that he has a heart condition, but does not know what kind of heart condition it is. Exam: Heart rate was 39. Asked the tech to do an EKG. EKG being done at this time. I have greeted and performed a rapid initial assessment of this patient. A comprehensive ED assessment and evaluation of the patient, analysis of test results and completion of medical decision making process will be conducted by an additional ED providers. TRAVEL OUTSIDE OF THE [place] IN LAST 30 DAYS: No - Related Data Allergies/Adverse Reactions: No Known Allergies Allergy (Verified 05/04/19 13:39) Past Medical History - Past Medical History Cardiac Medical History: Reports: Hx Hypercholesterolemia, Hx Hypertension Pulmonary Medical History: Denies: Hx Tuberculosis Endocrine Medical History: Reports: Hx Diabetes Mellitus Type 2 Renal/ Medical History: Denies: Hx Peritoneal Dialysis Past Surgical History: Reports: Hx Orthopedic Surgery - Hip. Denies: Hx Pacemaker - Immunizations Hx Diphtheria, Pertussis, Tetanus Vaccination: Yes - 2009 Physical Exam - Vital signs Vitals: Temp Pulse Resp BP Pulse Ox 98.2 F 39 L 23 H 139/76 H 95 11/20/20 15:21 11/20/20 15:21 11/20/20 15:21 11/20/20 15:21 11/20/20 15:21 Course - Vital Signs Vital signs: Temp Pulse Resp BP Pulse Ox 98.2 F 39 L 23 H 139/76 H 95 11/20/20 15:21 11/20/20 15:21 11/20/20 15:21 11/20/20 15:21 11/20/20 15:21 Doctor's Discharge - Discharge Referrals: ZULY NEVAREZ [Primary Care Provider] - Follow up as needed
--- NOTE | 2020-11-20 18:14 | RADIOLOGY REPORT (SQ) ---
EXAM DESCRIPTION: CHEST SINGLE VIEW IMAGES COMPLETED DATE/TIME: 11/20/2020 5:57 pm REASON FOR STUDY: chest pain COMPARISON: 05/04/2019 NUMBER OF VIEWS: One view. TECHNIQUE: Single frontal radiographic view of the chest acquired. LIMITATIONS: None. FINDINGS: LUNGS AND PLEURA: No opacities, masses or pneumothorax. No pleural effusion. MEDIASTINUM AND HILAR STRUCTURES: No masses. Contour normal. HEART AND VASCULAR STRUCTURES: Heart normal in size. Normal vasculature. BONES: No acute findings. HARDWARE: None in the chest. OTHER: No other significant finding. IMPRESSION: NO SIGNIFICANT RADIOGRAPHIC FINDING IN THE CHEST. TECHNICAL DOCUMENTATION: JOB ID: [id number] 2010 [email or web address] All Rights Reserved Reading location - IP/workstation name: [email or web address]
[2020-11-20 19:56] LABS: ALBUMIN 4.1 g/dL (3.5-5.0); ALKALINE PHOSPHATASE 81 U/L (38-126); ANION GAP 5 (5-19); ASPARTATE AMINO TRANSFERASE 31 U/L (17-59); BILIRUBIN,DIRECT 0.2 mg/dL (0.0-0.4); BILIRUBIN,TOTAL 0.5 mg/dL (0.2-1.3); BLOOD UREA NITROGEN 13 mg/dL (7-20); CALCIUM 9.8 mg/dL (8.4-10.2); CARBON DIOXIDE 28 mmol/L (22-30); CHLORIDE 100 mmol/L (98-107); CREATINE KINASE 66 U/L (55-170); GLUCOSE 217 mg/dL (75-110); POTASSIUM 3.9 mmol/L (3.6-5.0)
--- NOTE | 2020-11-20 20:01 | EKG REPORT ---
SEVERITY:- ABNORMAL ECG - SINUS RHYTHM PROBABLE LEFT VENTRICULAR HYPERTROPHY : Confirmed by: Nba Guerra MD 20-Nov-2020 20:00:27
[2020-11-20 20:08] LABS: TROPONIN I 0.023 ng/mL
[2020-11-21 00:51] LABS: ABSOLUTE EOSINOPHILS # (AUTO) 0.1 10^3/uL (0.0-0.6); ABSOLUTE LYMPHOCYTES (AUTO) 2.1 10^3/uL (0.5-4.7); ABSOLUTE MONOCYTES (AUTO) 0.8 10^3/uL (0.1-1.4); ABSOLUTE NEUT (AUTO) 1.9 10^3/uL (1.7-8.2); BASOPHILS % (AUTO) 0.9 % (0-2); EOSINOPHILS % (AUTO) 2.2 % (0-6); HEMATOCRIT 36.3 % (37.9-51.0); HEMOGLOBIN 12.5 g/dL (13.5-17.0); LYMPHOCYTES % (AUTO) 42.7 % (13-45); MEAN CORPUSCULAR HEMOGLOBIN 29.9 pg (27.0-33.4); MEAN CORPUSCULAR HGB CONC 34.3 g/dL (32.0-36.0); MEAN CORPUSCULAR VOLUME 87 fl (80-97); MONOCYTES % (AUTO) 15.6 % (3-13); PLATELET COUNT 148 10^3/uL (150-450); RED BLOOD COUNT 4.17 10^6/uL (4.35-5.55); RED CELL DISTRIBUTION WIDTH 12.4 % (11.5-14.0); SEGMENTED NEUTROPHILS % (AUTO) 38.6 % (42-78); TOTAL CELLS COUNTED % (AUTO) 100 %; WHITE BLOOD COUNT 4.8 10^3/uL (4.0-10.5)
[2020-11-21] MEDS ORDERED: ASPIRIN 81 MG TABLET, CHEWABLE PO ONE (02:50)
[2020-11-21] MEDS ORDERED: NITROGLYCERIN 0.4 MG/TAB 25 TAB/BOTTLE SL PRN (02:51)
--- NOTE | 2020-11-21 02:58 | ER Document Report ---
ED General - General Chief Complaint: Chest Pain Stated Complaint: CHEST PAIN, SHORTNESS OF BREATH Time Seen by Provider: 11/20/20 17:12 Primary Care Provider: [facility] [NO LOCAL MD] - Follow up as needed TRAVEL OUTSIDE OF THE [place] IN LAST 30 DAYS: No - HPI Context: Chief Complaint: [Chest pain] [50-year-old male with a history of hypertension, hyperlipidemia and elevated cholesterol presents to the emergency department complaining of chest pressure that has been present for the past 24 hours. ] History obtained from [patient] Symptoms began:[1 day ago] Onset: [Sudden] Timing: [Pressure waxes and wanes] Quality: [Patient describes sensation as pressure in his chest] Intensity: [3] Location: [Mid chest] Radiation: [Denies] [The pain does not migrate to a new location.] Aggravating factors: [none] Relieving factors: [none] [Denies] SOB [Denies] nausea [Denies] vomiting [Denies] sweats [Denies] fever [Denies] cough [Denies] calf or leg swelling or pain - Related Data Allergies/Adverse Reactions: No Known Allergies Allergy (Verified 05/04/19 13:39) Past Medical History - General Information source: Patient - Social History Smoking Status: Former Smoker Frequency of alcohol use: Rare Drug Abuse: None Family History: CAD, DM, Hyperlipidemia, Hypertension Patient has homicidal ideation: No - Past Medical History Cardiac Medical History: Reports: Hx Hypercholesterolemia, Hx Hypertension Pulmonary Medical History: Denies: Hx Tuberculosis Endocrine Medical History: Reports: Hx Diabetes Mellitus Type 2 Renal/ Medical History: Denies: Hx Peritoneal Dialysis Past Surgical History: Reports: Hx Orthopedic Surgery - Hip. Denies: Hx Pacemaker - Immunizations Hx Diphtheria, Pertussis, Tetanus Vaccination: Yes - 2009 Review of Systems - Review of Systems Notes: Review of systems as below unless otherwise stated in HPI. CONSTITUTIONAL [No] fever, [No] chills. EYES [No] eye pain. ENT [No] URI symptoms, [No] sore throat, [No] ear pain. CARDIOVASCULAR Positive chest pain, [No] palpitations, [No] edema. RESPIRATORY [No] Cough, [No] SOB, [No] wheezing. GASTROINTESTINAL [No] abdominal pain, [No] nausea, [No] Diarrhea, [No] Vomiting, [No] constipation, [No] melena, [No] rectal bleeding. GENITOURINARY [No] dysuria, [No] urinary frequency, [No] hematuria, [No] urinary urgency MUSCULOSKELETAL [No] Back pain. SKIN [No] Rash. NEUROLOGIC [No] Headache, [No] recent seizures, [No] paralysis,[No] parathesias. ENDOCRINE [No] polyuria. HEMO/LYMPATIC [No] easy brusing PSYCHIATRIC [No] depression. Physical Exam - Vital signs Vitals: Temp Pulse Resp BP Pulse Ox 98.2 F 39 L 23 H 139/76 H 95 11/20/20 15:21 11/20/20 15:21 11/20/20 15:21 11/20/20 15:21 11/20/20 15:21 - Notes Notes: CONSTITUTIONAL [Vital signs reviewed, Patient appears comfortable, Alert and oriented X 3, Normal stature.] HEAD [Atraumatic, Normocephalic.] EYES [Eyes are normal to inspection, No discharge from eyes, Extraocular muscles intact, Sclera are normal, Conjunctiva are normal.] ENT [External ears normal to inspection, Nose examination normal, Mouth normal to inspection.] NECK [Normal ROM, No jugular venous distention, No meningeal signs, ] RESPIRATORY CHEST [Chest is nontender, Breath sounds normal, No respiratory distress.] CARDIOVASCULAR [RRR, No murmurs, Normal S1 S2, No rub, No gallop.] ABDOMEN [Abdomen is nontender, No pulsatile masses, No other masses, Bowel sounds normal, No distension, No peritoneal signs, No hernias.] BACK [There is no CVA Tenderness, There is no tenderness to palpation, Normal inspection.] UPPER EXTREMITY [Inspection normal, No cyanosis, No clubbing, No edema, LOWER EXTREMITY [Inspection normal, No cyanosis, No clubbing, No edema, No calf tenderness, NEURO [No focal motor deficits, No focal sensory deficits, Speech normal.] SKIN [Skin is warm, Skin is dry, Skin is normal color.] PSYCHIATRIC [Normal affect. ] Course - Re-evaluation Re-evalutation: 11/21/20 05:38 HEART Score: History 1 ECG 1 Age 1 Risk Factors 2 Troponin 0 Total: 5 If HEART score is = 3 AND both tronponin measurments are normal, the 30 day risk of a major adverse cardiac event (all-cause mortality, myocardia infarction or need for coronary revscularization) is < 1% (Sensitivity 100%, NPV 100%). Chest pain in a patient without evidence of cardiac or other serious etiology on workup today. I discussed with patient that, based on their age, risk factors and emergency department testing today, the likelihood that their symptoms are related to a heart attack is very low (estimated risk of heart attack or over the next 30 days of less than 1%). The patient demonstrates decision making capacity and has verbalized an understanding of these risks to me. Based on this, the patient has chosen to follow-up as an outpatient. Usual chest pain return precautions reviewed. The patient states understanding and agreement with this plan. 11/21/20 07:03 Dr. Musa came down to the emergency department and examined the patient. He also spoke with Dr. Rojas with cardiology about the patient. They are in agreement that given that the patient has 3 - troponins and had a left heart catheterization urine a half ago that showed no significant disease, both Dr. Rojas and Dr. Musa feel that the patient can be discharged home and can follow-up with Dr. Rojas as an outpatient. Dr. Musa stated that he explained this plan to the patient. - Vital Signs Vital signs: Temp Pulse Resp BP Pulse Ox 98.6 F 39 L 18 131/98 H 97 11/21/20 04:01 11/20/20 15:21 11/21/20 06:01 11/21/20 06:01 11/21/20 06:01 - Laboratory Results Result Diagrams: 11/21/20 00:28 11/20/20 17:17 Laboratory Results Interpreted: 11/20/20 11/20/20 11/21/20 17:17 17:17 00:28 RBC 4.17 L Hgb 12.5 L Hct 36.3 L Plt Count 148 L [place] % (Auto) 15.6 H Seg Neutrophils % 38.6 L Sodium 133.4 L Glucose 217 H POC Glucose NT-Pro-B Natriuret Pep 223 H 11/21/20 04:02 RBC Hgb Hct Plt Count [place] % (Auto) Seg Neutrophils % Sodium Glucose POC Glucose 197 H NT-Pro-B Natriuret Pep Critical Laboratory Results Reviewed: No Critical Results Attending or Supervising Physician who Reviewed Labs: MOISES GURROLA IV - Radiology Results Critical Radiology Results Reviewed: No Critical Results Attending or Supervising Physician who Reviewed Radiology: MOISES GURROLA IV - EKG Interpretation by Me Additional EKG results interpreted by me: 11/21/20 02:58 EKG obtained on 11/20/2020 and 1902 hrs. was interpreted by this MD. Findings: Normal sinus rhythm, rate 73, normal axis, ME interval appears to be within normal limits, P waves proceed QRS complexes, QRS complexes appear narrow, QTC is 424, there are no obvious patterns of ST segment elevation, depression or reciprocal changes seen to suggest acute myocardial ischemia or infarction. Impression: Normal sinus rhythm with nonspecific ST segments. There is no prior EKG available for comparison. - Consults Dr. Musa Time consulted: 06:10 Reason for consultation: 11/21/20 06:16 chest pain, heart score of 5 Consulted provider: will come to ER Discharge - Discharge Clinical Impression: Chest pain Qualifiers: Chest pain type: unspecified Qualified Code(s): R07.9 - Chest pain, unspecified Condition: Stable Disposition: HOME, SELF-CARE Additional Instructions: Return to the Emergency Department without delay if any worse. HOME CARE INSTRUCTIONS & INFORMATION: Thank you for choosing us for your medical needs. We hope you're satisfied with the care you received. After you leave, you must properly care for your problem and, at the same time, observe its progress. Any condition can change. Some illnesses can change rapidly over hours or days. If your condition worsens, return to the Emergency Department or see your physician promptly. ABOUT YOUR X-RAYS AND EKG'S: If you had an EKG or X-rays taken, they have been read by the Emergency Physician. The X-rays and EKG's will also be read by a Radiologist or Plater Helper within 24 hours. If discrepancies are noted, you w ill be notified by telephone. Please be certain the ED has a correct telephone number & address where you can be reached. Also, realize that some fractures or abnormalities do not show up on initial X-rays. If your symptoms continue, see your physician. ABOUT YOUR LABORATORY TEST: If you had laboratory tests, the results have been reviewed by the Emergency Physician. Some test results (for example cultures) may not be available for several days. You will be contacted if any test result shows you need additional treatment. Please be certain the ED has a correct telephone number and address where you can be reached. ABOUT YOUR MEDICATIONS: You will receive instructions on how to take your medicine on the prescription label you receive. Additional information may be provided by the Pharmacy. If you have questions afterwards, call the ED for clarification or further instructions. Some prescribed medications may cause drowsiness. Do not perform tasks such as driving a car or operating machinery without consulting your Pharmacist. If you feel you need a refill of pain medic ation, your condition will need re-evaluation. Please do not call for a refill of any medication. ABOUT YOUR SIGNATURE: Signature of this document acknowledges to followin. Understanding that you received emergency treatment and that you may be released before al medical problems are known or treated. Please be certain the ED has a correct phone number & address where you can be reached. 2. Acknowledgement that you will arrange for follow-up care as recommended. 3. Authorization for the Emergency Physician to provide information to your follow-up Physician in order to maximize your care. AT ANY TIME, IF YOUR SYMPTOMS CHANGE SIGNIFICANTLY OR WORSEN OR YOU DEVELOP NEW SYMPTOMS, RETURN TO THE EMERGENCY DEPARTMENT IMMEDIATELY FOR RE-EVALUATION. OUR GOAL IS TO PROVIDE EXCELLENT MEDICAL CARE! WE HOPE THAT WE HAVE MET YOUR EXPECTATIONS DURING YOUR EMERGENCY DEPARTMENT VISIT AND THAT YOU FEEL YOU HAVE RECEIVED EXCELLENT CARE! [facility] [NO LOCAL MD] - Follow up as needed TED ROJAS MD [ACTIVE STAFF] - 11/23/20 (Call Dr. Watkins office on 11/23/2020 to arrange a follow-up appointment.)
[2020-11-21] MEDS ORDERED: ASPIRIN 81 MG TABLET, CHEWABLE ONE (03:32)
[2020-11-21] MEDS ORDERED: LISINOPRIL 10 MG TABLET PO ONE (03:42)
--- NOTE | 2020-11-21 07:28 | PDOC CONSULTATION ---
Consultation Consult Date: 11/21/19 Attending physician:: MOISES GURROLA IV Provider Consulted: BRYANNA GREEN Consult reason:: chest pain History of Present Illness Admission Date/PCP: TITI SAMPSON MD Patient complains of: chest tightness History of Present Illness: TOBY CIFUENTES JR is a 50 year old male with a history of hypertension, diabetes and hyperlipidemia presented to the ED on 11/20/2020 after he started experiencing retrosternal chest pain. He describes the pain as heaviness. The discomfort was nonexertional in nature and was relieved by taking a deep breath and lifting his arm above his head. At the beginning of the chest discomfort he had few minutes of lightheadedness. Patient has been monitored at the ED for about 15 hours and currently patient is chest pain-free. Cardiac enzymes have been trended x3 and all have been negative. EKG showed sinus rhythm with no ST-T wave changes. Of note, patient had a similar presentation a year and half ago and underwent extensive cardiac work-up including left heart cath which showed nonischemic cardiomyopathy with nonobstructive CAD and left anterior descending aneurysm. Patient also denies any cough, fever, chills, shortness of breath, palpitation, nausea, vomiting or any bowel or urine habit changes. Past Medical History Cardiac Medical History: Reports: Hyperlipidema, Hypertension Pulmonary Medical History: Denies: Tuberculosis Endocrine Medical History: Reports: Diabetes Mellitus Type 2 Past Surgical History Past Surgical History: Reports: Orthopedic Surgery - Hip Denies: Pacemaker Social History Information Source: Patient Lives with: Family Smoking Status: Former Smoker Frequency of Alcohol Use: Social Hx Recreational Drug Use: No Drugs: None Hx Prescription Drug Abuse: No - Advance Directive Resuscitation Status: Full Code Family History Family History: CAD, DM, Hyperlipidemia, Hypertension Parental Family History Reviewed: Yes Children Family History Reviewed: Yes Sibling(s) Family History Reviewed.: Yes Medication/Allergy Home Medications: Atorvastatin Calcium [Lipitor 20 mg Tablet] 20 mg PO QHS #30 tablet 01/31/19 Insulin Glargine,Hum.rec.anlog [Lantus Insulin 100 Unit/1 ml 10 ml] 20 unit SUBCUT DAILY 05/05/19 Lisinopril/Hydrochlorothiazide [Lisinopril-Hctz 20-25 mg Tab] 1 each PO DAILY 05/05/19 Metformin HCl 1,000 mg PO BID 05/05/19 Acetaminophen [Tylenol 325 mg Tablet] 650 mg PO Q4HP PRN tablet 05/07/19 Aspirin [Ecotrin 81 mg EC Tablet] 81 mg PO DAILY tabec 05/07/19 Carvedilol [Coreg 3.125 mg Tablet] 3.125 mg PO Q12 tablet 05/07/19 Cyclobenzaprine HCl [Flexeril 10 mg Tablet] 5 mg PO TIDP PRN tablet 05/07/19 Famotidine [Pepcid 20 mg Tablet] 20 mg PO Q12 #60 tablet 05/07/19 Glipizide [Glucotrol Xl 2.5 mg Tab.er] 2.5 mg PO ACBRKFST tab.er.24 05/07/19 Isosorbide Mononitrate [Imdur 30 mg Tablet.er] 30 mg PO DAILY #30 tab.er.24h 05/07/19 Nicotine [Nicoderm 21 mg/24 Hr Transderm Patch] 1 each TD DAILY #30 patch.td24 05/07/19 Doxycycline Hyclate 100 mg PO BID #14 tablet.dr 06/05/19 Oxycodone HCl/Acetaminophen [Percocet 5-325 mg Tablet] 1 tab PO ASDIR PRN #10 tablet 06/05/19 Allergies/Adverse Reactions: No Known Allergies Allergy (Verified 05/04/19 13:39) Review of Systems Constitutional: ABSENT: chills, fever(s), headache(s), weight gain, weight loss Eyes: ABSENT: visual disturbances Ears: ABSENT: hearing changes Nose, Mouth, and Throat: ABSENT: headache(s), mouth pain, sore throat Cardiovascular: PRESENT: as per HPI Respiratory: PRESENT: as per HPI Gastrointestinal: ABSENT: abdominal pain, constipation, diarrhea, hematemesis, hematochezia, nausea, vomiting Musculoskeletal: ABSENT: joint swelling Integumentary: ABSENT: rash, wounds Neurological: ABSENT: abnormal gait, abnormal speech, confusion, dizziness, focal weakness, syncope Psychiatric: ABSENT: anxiety, depression, homidical ideation, suicidal ideation Endocrine: ABSENT: cold intolerance, heat intolerance, polydipsia, polyuria Hematologic/Lymphatic: ABSENT: easy bleeding, easy bruising Physical Exam Vital Signs: Temp Pulse Resp BP Pulse Ox 98.6 F 39 L 18 131/98 H 97 11/21/20 04:01 11/20/20 15:21 11/21/20 06:01 11/21/20 06:01 11/21/20 06:01 Intake & Output 11/20/20 11/21/20 11/22/20 06:59 06:59 06:59 Weight 86.183 kg Additional comments: GENERAL APPEARANCE: Alert and oriented x3, in no acute distress HEENT: Normocephalic and atraumatic. No scleral icterus. Moist oral mucosa NECK: Supple. No lymphadenopathy or tenderness. No JVD CHEST: Symmetric. Nontender to palpation. LUNGS: Clear with good air entry bilaterally. No wheezing or crackles HEART: Regular rate and rhythm with normal S1 and S2. No murmurs, gallops, or rubs. ABDOMEN: soft, active bowel sounds, no direct or rebound tenderness. No organomegaly detected. EXTREMITIES: No cyanosis, clubbing, or edema. MUSCULOSKELETAL: No deformity, atrophy or swelling noted PSYCHIATRIC: Recent and remote memory is intact. Appropriate mood and affect. SKIN: Warm, dry, and well perfused. No lesions or rashes are noted. NEUROLOGIC: No focal sensory or motor deficits are noted. Results Laboratory Results: 11/21/20 00:28 11/20/20 17:17 11/20/20 11/20/20 11/20/20 17:17 17:17 22:56 WBC Cancelled Cancelled RBC Cancelled Cancelled Hgb Cancelled Cancelled Hct Cancelled Cancelled MCV Cancelled Cancelled MCH Cancelled Cancelled MCHC Cancelled Cancelled RDW Cancelled Cancelled Plt Count Cancelled Cancelled Seg Neutrophils % Cancelled Cancelled Sodium 133.4 L Potassium 3.9 Chloride 100 Carbon Dioxide 28 Anion Gap 5 BUN 13 Creatinine 0.66 Est GFR ( Amer) > 60 Glucose 217 H Calcium 9.8 Total Bilirubin 0.5 AST 31 Alkaline Phosphatase 81 Total Protein 7.0 Albumin 4.1 11/21/20 00:28 WBC 4.8 RBC 4.17 L Hgb 12.5 L Hct 36.3 L MCV 87 MCH 29.9 MCHC 34.3 RDW 12.4 Plt Count 148 L Seg Neutrophils % 38.6 L Sodium Potassium Chloride Carbon Dioxide Anion Gap BUN Creatinine Est GFR ( Amer) Glucose Calcium Total Bilirubin AST Alkaline Phosphatase Total Protein Albumin 11/20/20 11/20/20 11/20/20 17:17 17:17 17:17 Creatine Kinase 66 CK-MB (CK-2) 0.91 Troponin I 0.023 Cancelled NT-Pro-B Natriuret Pep 223 H 11/20/20 11/21/20 22:56 03:31 Creatine Kinase CK-MB (CK-2) Troponin I 0.021 0.014 NT-Pro-B Natriuret Pep Impressions: Chest X-Ray 11/20/20 17:17 IMPRESSION: NO SIGNIFICANT RADIOGRAPHIC FINDING IN THE CHEST. Assessment and Plan - Diagnosis (1) Atypical chest pain Is this a current diagnosis for this admission?: Yes Plan: Presents with pressure-like chest pain Currently he is chest pain-free Cardiac enzymes x3 has been negative: 0.012> 0.012> 0.014 EKG showed sinus rhythm with signs of left ventricular hypertrophy with no ST-T wave changes Patient had cardiac catheterization done in 04/2019 and this showed nonischemic cardiomyopathy with nonobstructing CAD In the setting of decreased cardiac enzymes x3 and EKG showing no ischemic changes, less likely to be ACS and patient followed as outpatient with cardiology clinic for possible outpatient stress test Case was discussed with cardiology(Dr. Guerra) and he agrees with outpatient work-up and follow-up at his cardiology clinic In the meantime continue aspirin, increase atorvastatin to 40 mg p.o. daily, optimally controlled blood sugar and hypertension. (2) Cardiomyopathy Qualifiers: Cardiomyopathy type: unspecified Qualified Code(s): I42.9 - Cardiomyopathy, unspecified Is this a current diagnosis for this admission?: Yes Plan: Cardiac catheterization done a year and half ago showed nonischemic cardiomyopathy Currently patient denies shortness of breath and has no crackles, elevated JVD or leg swelling on physical examination Continue carvedilol, lisinopril, and isosorbide mononitrate Follow-up with PCP and cardiology outpatient (3) Diabetes Qualifiers: Diabetes mellitus type: type 2 Diabetes mellitus snf insulin use: without superintendent [employer] use Diabetes mellitus complication status: without complication Qualified Code(s): E11.9 - Type 2 diabetes mellitus without complications Is this a current diagnosis for this admission?: Yes Plan: Patient has been out of his medication acutely transfuse He recently reestablished follow-up with his primary care Random blood sugar was 217 on this presentation Continue optimal control of blood sugar (4) Dyslipidemia Is this a current diagnosis for this admission?: Yes Plan: Increase atorvastatin to 40 mg p.o. daily (5) Hypertension Qualifiers: Hypertension type: essential hypertension Qualified Code(s): I10 - Essential (primary) hypertension Is this a current diagnosis for this admission?: Yes Plan: Continue optimal management of hypertension Currently on HCTZ/lisinopril, carvedilol and isosorbide mononitrate Continue following up with PCP - Time Time Spent with patient: 35 or more minutes Total Critical Time (Minutes): 40 Medications reviewed and adjusted accordingly: Yes Anticipated Discharge Disposition: Home, Self Care Anticipated Discharge Timeframe: within 24 hours - Inpatient Certification Based on my medical assessment, after consideration of the patient's comorbidities, presenting symptoms, or acuity I expect that the services needed warrant INPATIENT care.: Yes I certify that my determination is in accordance with my understanding of Medicare's requirements for reasonable and necessary INPATIENT services [42 CFR 412.3e].: Yes Medical Necessity: Other - Patient currently being discharged with outpatient follow-up with cardiology and PCP Post Hospital Care: Other - Patient being discharged from the ED with outpatient follow-up with PCP and cardiology
[2020-11-21 07:38] VITALS: BP 148/92
== END 2020-11-21 07:39 | disposition home or self-care (01) ==
LOC: ER 15:10
DX: R07.89 Other chest pain (principal); I42.9 Cardiomyopathy, unspecified; R06.02 Shortness of breath; E11.9 Type 2 diabetes mellitus without complications; I10 Essential (primary) hypertension; E78.00 Pure hypercholesterolemia, unspecified; E78.5 Hyperlipidemia, unspecified
CPT/HCPCS: 93005; 99285; 36415; 82553; 82962; 82550; 85025; 0241U ×4; 80053; 84484; 83880; 71045; 93010; C9803